=== PATIENT | female | born 1975 | race Two or more races ===

== ENCOUNTER 2020-06-18 19:41 | Inpatient (IN) | payer MEDICARE, MEDICAID ==
[~2020-06-18] VITALS: Ht 175.3 cm; Wt 71.8 kg
[2020-06-18 19:41] VITALS: BP 112/75
[2020-06-18 20:17] LABS: BASOPHILS % (AUTO) 0.8 % (0.0-2.0); EOSINOPHILS % (AUTO) 0.4 % (0.0-3.0); HEMATOCRIT 30.8 % (37.0-47.0); HEMOGLOBIN 9.9 G/DL (12.0-16.0); LYMPHOCYTES % (AUTO) 13.4 % (20.0-45.0); MEAN CORPUSCULAR VOLUME 84 FL (80-99); MONOCYTES % (AUTO) 4.5 % (1.0-10.0); NEUTROPHILS % (AUTO) 80.9 % (45.0-75.0); PLATELET COUNT 280 K/UL (150-450); RED BLOOD COUNT 3.65 M/UL (4.20-5.40); RED CELL DISTRIBUTION WIDTH 14.8 % (11.6-14.8); WHITE BLOOD COUNT 15.6 K/UL (4.8-10.8)
--- NOTE | 2020-06-18 20:24 | Diagnostic Imaging Report ---
EXAM: XR Chest, 1 View CLINICAL HISTORY: OSTEOMY TECHNIQUE: Frontal view of the chest. COMPARISON: No relevant prior studies available. FINDINGS: Lungs: Low lung volumes with bronchovascular crowding. No consolidation, pleural effusion, or pneumothorax. Pleural space: See above. Heart: Unremarkable. No cardiomegaly. Mediastinum: Unremarkable. Bones/joints: No acute abnormality IMPRESSION: 1. Low lung volumes with bronchovascular crowding. 2. Otherwise no acute cardiopulmonary disease. 3. If there is further concern, recommend additional imaging such as CT.
[2020-06-18 20:25] LABS: ANION GAP 13 mmol/L (5-15); BLOOD UREA NITROGEN 26 mg/dL (7-18); CALCIUM 9.4 MG/DL (8.5-10.1); CARBON DIOXIDE 24 MMOL/L (21-32); CHLORIDE 98 MMOL/L (98-107); POTASSIUM 4.7 MMOL/L (3.5-5.1); SODIUM 135 MMOL/L (136-145)
--- NOTE | 2020-06-18 20:27 | Diagnostic Imaging Report ---
EXAM: XR Right Foot Complete, 3 or More Views CLINICAL HISTORY: Osteotomy TECHNIQUE: Frontal, lateral and oblique views of the right foot. COMPARISON: No relevant prior studies available. FINDINGS: Bones/joints: Midfoot amputation through the metatarsal bases. Achilles calcaneal enthesophyte. No acute fracture. No dislocation. Soft tissues: Extensive soft tissue edema and thickening over the distal stump, correlate with presentation to evaluate for cellulitis and ulceration. No radiopaque foreign body. Other findings: No clearly osteolytic finding identified. IMPRESSION: 1. Please note that radiographs are substantially less sensitive and specific for osteomyelitis then MRI. 2. Midfoot amputation through the metatarsal bases. 3. Extensive soft tissue edema and thickening over the distal stump, correlate with presentation to evaluate for cellulitis and ulceration. 4. No clearly osteolytic finding identified.
[2020-06-18 20:29] LABS: ALANINE AMINOTRANSFERASE 19 U/L (12-78); ALBUMIN 3.5 G/DL (3.4-5.0); ALBUMIN/GLOBULIN RATIO 0.7 (1.0-2.7); ALKALINE PHOSPHATASE 121 U/L (46-116); ASPARTATE AMINO TRANSFERASE 13 U/L (15-37); BILIRUBIN,TOTAL 0.4 MG/DL (0.2-1.0); CREATINE KINASE 130 U/L (26-308)
[2020-06-18 21:45] LABS: APPEARANCE,URINE CLOUDY; COLOR,URINE YELLOW
[2020-06-18 21:46] LABS: BILIRUBIN, URINE NEGATIVE (NEGATIVE); GLUCOSE, URINE (UA) NEGATIVE (NEGATIVE); KETONES,URINE NEGATIVE (NEGATIVE); LEUKOCYTE ESTERASE ,URINE 3+ (NEGATIVE); NITRITE,URINE NEGATIVE (NEGATIVE); PROTEIN,URINE 3+ (NEGATIVE); UROBILINOGEN,URINE NORMAL MG/DL (0.0-1.0)
--- NOTE | 2020-06-18 22:19 | Emergency Room Report ---
History of Present Illness General Chief Complaint: Wound Recheck/Suture Removal Source: Patient, EMS Present Illness HPI Patient from [facility]. Foot infection partially treated post amputation. She states she is supposed be taking antibiotics at this time. She was recently hospitalized with Jayda. It is unclear whether she left [facility] or from a rehab facility to go back to the [facility]. She denies any drainage in the foot but has not been taking care of the wound. Initially she claims the pain is 10/10 however later states that when the foot is elevated it does not hurt. The pain is pressure and throbbing. She denies radiation up into the leg. She is unclear as to what led to the partial foot amputation aside from having a previous infection. She denies diabetes or poor circulation. She denies fevers or chills. H/O schizophrenia. No SI or HI. The patient is not taking medication at this time. No sore throat, chest pain, palpitations, nausea, vomiting, diarrhea, dysuria, abdominal pain, shortness of breath, visual changes, dizziness, headache. Allergies: Coded Allergies: No Known Allergies (Unverified , 06/18/20) COVID-19 Screening Contact w/high risk pt: No Experienced COVID-19 symptoms?: No COVID-19 Testing performed DRAGGER: No Patient History Past Medical History: see triage record Past Surgical History: other - forefoot amputation Social History: Denies: smoking Social History Narrative eloped from SNF? Reviewed Nursing Documentation: PMH: Agreed; PSxH: Agreed Review of Systems All Other Systems: negative except mentioned in HPI Physical Exam Vital Signs Date Time Temp Pulse Resp B/P (MAP) Pulse Ox O2 Delivery O2 Flow Rate FiO2 06/18/20 19:26 98.4 90 18 110/70 (83) 98 Room Air Sp02 EP Interpretation: reviewed, normal General Appearance: no apparent distress, alert, non-toxic, other - Disheveled Head: normocephalic Eyes: bilateral eye PERRL, bilateral eye EOMI, bilateral eye Scleral Injection ENT: moist mucus membranes Neck: supple Respiratory: lungs clear, normal breath sounds Cardiovascular #1: regular rate, rhythm Cardiovascular #2: 2+ radial (R) Gastrointestinal: normal inspection, non-distended Musculoskeletal: back normal, normal range of motion, swelling - Right distal foot with open lesion post amputation Neurologic: alert, oriented x3, grossly normal Psychiatric: no suicidal/homicidal ideation, other - Flat affect and some disorganized thought Skin: warm/dry, other - Open lesion with erythema, possible vegetable debris right foot Medical Decision Making Diagnostic Impression: Primary Impression: Cellulitis Qualified Codes: L03.115 - Cellulitis of right lower limb Additional Impressions: UTI (urinary tract infection) Qualified Codes: N39.0 - Urinary tract infection, site not specified Schizophrenia Qualified Codes: F20.9 - Schizophrenia, unspecified Post midfoot amputation ER Course Patient presents with right foot lesion with a history of schizophrenia. Differential includes cellulitis, abscess, osteomyelitis amongst others. Apparently she is supposed be taking antibiotics in a rehab facility but left. Evaluation for systemic effects of this infection with EKG and labs and x-ray. Patient declined pain medication. EKG no injury. Elevate WBC and ESR. Xray no evidence of gas or osteo. Urinalysis with pyuria. Antibiotics begun. Apparently there is an SNF ready for patient. However due to the appearance of her foot and also UTI and schizophrenia, patient needs admission for IV antibiotics. Complicated patient at risk for severe complications. Ability to care for these serious infections compromised by schizophrenia. Laboratory Tests Test 06/18/20 19:56 White Blood Count 15.6 K/UL (4.8-10.8) H Red Blood Count 3.65 M/UL (4.20-5.40) L Hemoglobin 9.9 G/DL (12.0-16.0) L Hematocrit 30.8 % (37.0-47.0) L Mean Corpuscular Volume 84 FL (80-99) Mean Corpuscular Hemoglobin 27.0 PG (27.0-31.0) Mean Corpuscular Hemoglobin Concent 32.0 G/DL (32.0-36.0) Red Cell Distribution Width 14.8 % (11.6-14.8) Platelet Count 280 K/UL (150-450) Mean Platelet Volume 8.4 FL (6.5-10.1) Neutrophils (%) (Auto) 80.9 % (45.0-75.0) H Lymphocytes (%) (Auto) 13.4 % (20.0-45.0) L Monocytes (%) (Auto) 4.5 % (1.0-10.0) Eosinophils (%) (Auto) 0.4 % (0.0-3.0) Basophils (%) (Auto) 0.8 % (0.0-2.0) Erythrocyte Sedimentation Rate 119 MM/HR (0-20) H Prothrombin Time 10.8 SEC (9.30-11.50) Prothrombin Time INR 1.0 (0.9-1.1) Activated Partial Thromboplast Time 28 SEC (23-33) Urine Color Yellow Urine Appearance Cloudy Urine pH 5.0 (4.5-8.0) Urine Specific [place] 1.020 (1.005-1.035) Urine Protein 3+ (NEGATIVE) H Urine Glucose (UA) Negative (NEGATIVE) Urine Ketones Negative (NEGATIVE) Urine Blood 2+ (NEGATIVE) H Urine Nitrite Negative (NEGATIVE) Urine Bilirubin Negative (NEGATIVE) Urine Urobilinogen Normal MG/DL (0.0-1.0) Urine Leukocyte Esterase 3+ (NEGATIVE) H Urine RBC 2-4 /HPF (0 - 2) H Urine WBC 20-30 /HPF (0 - 2) H Urine Squamous Epithelial Cells Many /LPF (NONE/OCC) H Urine Bacteria Many /HPF (NONE) H Sodium Level 135 MMOL/L (136-145) L Potassium Level 4.7 MMOL/L (3.5-5.1) Chloride Level 98 MMOL/L (98-107) Carbon Dioxide Level 24 MMOL/L (21-32) Anion Gap 13 mmol/L (5-15) Blood Urea Nitrogen 26 mg/dL (7-18) H Creatinine 2.0 MG/DL (0.55-1.30) H Estimated Glomerular Filtration Rate 27.1 mL/min (>60) Glucose Level 182 MG/DL (74-106) H Lactic Acid Level 1.60 mmol/L (0.4-2.0) Calcium Level 9.4 MG/DL (8.5-10.1) Magnesium Level 1.9 MG/DL (1.8-2.4) Total Bilirubin 0.4 MG/DL (0.2-1.0) Aspartate Amino Transferase (AST) 13 U/L (15-37) L Alanine Aminotransferase (ALT) 19 U/L (12-78) Alkaline Phosphatase 121 U/L (46-116) H Total Creatine Kinase 130 U/L (26-308) Troponin I 0.000 ng/mL (0.000-0.056) C-Reactive Protein, Quantitative 4.5 mg/dL (0.00-0.90) H Total Protein 8.8 G/DL (6.4-8.2) H Albumin 3.5 G/DL (3.4-5.0) Globulin 5.3 g/dL Albumin/Globulin Ratio 0.7 (1.0-2.7) L Lipase 83 U/L (73-393) Urine Opiates Screen Negative (NEGATIVE) Urine Barbiturates Screen Negative (NEGATIVE) Phencyclidine (PCP) Screen Negative (NEGATIVE) Urine Amphetamines Screen Negative (NEGATIVE) Urine Benzodiazepines Screen Negative (NEGATIVE) Urine Cocaine Screen Negative (NEGATIVE) Urine Marijuana (THC) Screen Negative (NEGATIVE) Serum Alcohol < 3 mg/dL EKG Diagnostic Results Rate: normal Rhythm: NSR ST Segments: no acute changes Rhythm Strip Diag. Results EP Interpretation: yes Rhythm: NSR, no PVC's, no ectopy Chest X-Ray Diagnostic Results Chest X-Ray Diagnostic Results : Chest X-Ray Ordered: Yes # of Views/Limited/Complete: 1 View Indication: Other EP Interpretation: Yes Interpretation: no consolidation, no effusion, no pneumothorax Impression: No acute disease Electronically Signed by: Electronically signed by Harjeet Barajas MD Other X-Ray Diagnostic Results Other X-Ray Diagnostic Results : X-Ray ordered: R foot # of Views/Limited Vs Complete: 3 View Indication: Other EP Interpretation: Yes Interpretation: no dislocation, no fractures, other Impression: Other Electronically Signed by: Electronically signed by Harjeet Barajas MD Last Vital Signs Date Time Temp Pulse Resp B/P (MAP) Pulse Ox O2 Delivery O2 Flow Rate FiO2 06/19/20 00:58 Room Air 06/19/20 00:21 97.9 77 17 127/77 (94) 98 Status: improved Disposition: ADMITTED INPATIENT Condition: Serious Referrals: NOT CHOSEN IPA/,REFERRING (PCP) Harjeet Barajas MD Jun 18, 2020 22:19
[2020-06-18] MEDS ORDERED: Piperacillin/Tazobactam 3.375 GM in NS 110 ML IVPB ONE (22:30)
[2020-06-18] MEDS ORDERED: Vancomycin 1 GM in NS 275 ML IVPB ONE (22:30)
[2020-06-18] MEDS ORDERED: DiphenhydrAMINE 50mg/ml Inj IVP ONE (22:45)
[2020-06-18] MEDS ORDERED: Metoclopramide 10mg/2ml Inj IVP ONE (22:45)
[2020-06-19 00:21] VITALS: BP 127/77
[2020-06-19 04:00] VITALS: BP 117/64
[2020-06-19 08:00] VITALS: BP 119/73
--- NOTE | 2020-06-19 08:45 | History & Physical ---
History of Present Illness General Reason for Hospitalization: Wound Recheck/Suture Removal Present Illness HPI 45 year old homeless female with recent Foot infection partially treated post amputation. She states she is supposed be taking antibiotics at this time. She was recently hospitalized with Jayda. It is unclear whether she left [facility] or from a rehab facility to go back to the streets. She denies any drainage in the foot but has not been taking care of the wound. Initially she claims the pain is 10/10 however later states that when the foot is elevated it does not hurt. The pain is pressure and throbbing. She denies radiation up into the leg. She is unclear as to what led to the partial foot amputation aside from having a previous infection. She denies diabetes or poor circulation. She denies fevers or chills.H/O schizophrenia. No SI or HI. The patient is not taking medication at this time.No sore throat, chest pain, palpitations, nausea, vomiting, diarrhea, dysuria, abdominal pain, shortness of breath, visual changes, dizziness, headache. Allergies: Coded Allergies: No Known Allergies (Unverified , 06/18/20) COVID-19 Screening Contact w/high risk pt: No Experienced COVID-19 symptoms?: No Medication History Scheduled Haloperidol (Haloperidol), 5 MG ORAL DAILY, (Reported) Patient History Healthcare decision maker Resuscitation status Advanced Directive on File Review of Systems Review of Symptoms General ROS: no weight loss or fever Psychological ROS: no depression or mood changes, no memory loss Ophthalmic ROS: no visual changes or eye irritation ENT ROS: no nasal congestion, hearing loss, dizziness Allergy and Immunology ROS: no allergic symptoms or urticaria Hematological and Lymphatic ROS: no swollen glands, unusual bleeding or bruising Endocrine ROS: no polyuria, polydipsia, weight changes, temperature intolerance Respiratory ROS: no cough, shortness of breath, or wheezing Cardiovascular ROS: no chest pain or dyspnea on exertion Gastrointestinal ROS: denies abdominal pain, bright red blood in stool. Musculoskeletal ROS: no myalgias or arthralgias Neurological ROS: no TIA or stroke symptoms Dermatological ROS: no new or changing skin lesions, rashes or pruritis Physical Exam Physical Exam General appearance: alert, cooperative, no distress, appears stated age Head: Normocephalic, without obvious abnormality, atraumatic Eyes: conjunctivae/corneas clear. PERRL, EOM's intact. Fundi benign Throat: Lips, mucosa, and tongue normal. Teeth and gums normal Neck: supple, symmetrical, trachea midline, no adenopathy, thyroid: not enlarged, symmetric, no tenderness/mass/nodules, no carotid bruit and no JVD Lungs: clear to auscultation bilaterally Heart: regular rate and rhythm, S1, S2 normal, no murmur, click, rub or gallop Abdomen: soft, non-tender. Bowel sounds normal. No masses, no organomegaly Extremities: extremities normal, atraumatic, no cyanosis or edema + foot infection Pulses: 2+ and symmetric Skin: Skin color, texture, turgor normal. No rashes or lesions Neurologic: Grossly normal Last 24 Hour Vital Signs Date Time Temp Pulse Resp B/P (MAP) Pulse Ox O2 Delivery O2 Flow Rate FiO2 06/19/20 04:00 98.3 82 17 117/64 (81) 98 06/19/20 00:58 Room Air 06/19/20 00:21 97.9 77 17 127/77 (94) 98 06/18/20 23:55 98.0 100 20 129/59 98 Room Air 06/18/20 19:41 98.0 98 18 112/75 98 Room Air 06/18/20 19:26 98.4 90 18 110/70 (83) 98 Room Air Intake and Output 06/18/20 06/19/20 19:00 07:00 Intake Total 1260 ml Balance 1260 ml Intake Oral 150 ml IV Total 1110 ml # Voids 1 Laboratory Tests Test 06/18/20 19:56 White Blood Count 15.6 K/UL (4.8-10.8) H Red Blood Count 3.65 M/UL (4.20-5.40) L Hemoglobin 9.9 G/DL (12.0-16.0) L Hematocrit 30.8 % (37.0-47.0) L Mean Corpuscular Volume 84 FL (80-99) Mean Corpuscular Hemoglobin 27.0 PG (27.0-31.0) Mean Corpuscular Hemoglobin Concent 32.0 G/DL (32.0-36.0) Red Cell Distribution Width 14.8 % (11.6-14.8) Platelet Count 280 K/UL (150-450) Mean Platelet Volume 8.4 FL (6.5-10.1) Neutrophils (%) (Auto) 80.9 % (45.0-75.0) H Lymphocytes (%) (Auto) 13.4 % (20.0-45.0) L Monocytes (%) (Auto) 4.5 % (1.0-10.0) Eosinophils (%) (Auto) 0.4 % (0.0-3.0) Basophils (%) (Auto) 0.8 % (0.0-2.0) Erythrocyte Sedimentation Rate 119 MM/HR (0-20) H Prothrombin Time 10.8 SEC (9.30-11.50) Prothromb Time International Ratio 1.0 (0.9-1.1) Activated Partial Thromboplast Time 28 SEC (23-33) Urine Color Yellow Urine Appearance Cloudy Urine pH 5.0 (4.5-8.0) Urine Specific [place] 1.020 (1.005-1.035) Urine Protein 3+ (NEGATIVE) H Urine Glucose (UA) Negative (NEGATIVE) Urine Ketones Negative (NEGATIVE) Urine Blood 2+ (NEGATIVE) H Urine Nitrite Negative (NEGATIVE) Urine Bilirubin Negative (NEGATIVE) Urine Urobilinogen Normal MG/DL (0.0-1.0) Urine Leukocyte Esterase 3+ (NEGATIVE) H Urine RBC 2-4 /HPF (0 - 2) H Urine WBC 20-30 /HPF (0 - 2) H Urine Squamous Epithelial Cells Many /LPF (NONE/OCC) H Urine Bacteria Many /HPF (NONE) H Sodium Level 135 MMOL/L (136-145) L Potassium Level 4.7 MMOL/L (3.5-5.1) Chloride Level 98 MMOL/L (98-107) Carbon Dioxide Level 24 MMOL/L (21-32) Anion Gap 13 mmol/L (5-15) Blood Urea Nitrogen 26 mg/dL (7-18) H Creatinine 2.0 MG/DL (0.55-1.30) H Estimat Glomerular Filtration Rate 27.1 mL/min (>60) Glucose Level 182 MG/DL (74-106) H Lactic Acid Level 1.60 mmol/L (0.4-2.0) Calcium Level 9.4 MG/DL (8.5-10.1) Magnesium Level 1.9 MG/DL (1.8-2.4) Total Bilirubin 0.4 MG/DL (0.2-1.0) Aspartate Amino Transf (AST/SGOT) 13 U/L (15-37) L Alanine Aminotransferase (ALT/SGPT) 19 U/L (12-78) Alkaline Phosphatase 121 U/L (46-116) H Total Creatine Kinase 130 U/L (26-308) Troponin I 0.000 ng/mL (0.000-0.056) C-Reactive Protein, Quantitative 4.5 mg/dL (0.00-0.90) H Total Protein 8.8 G/DL (6.4-8.2) H Albumin 3.5 G/DL (3.4-5.0) Globulin 5.3 g/dL Albumin/Globulin Ratio 0.7 (1.0-2.7) L Lipase 83 U/L (73-393) Urine Opiates Screen Negative (NEGATIVE) Urine Barbiturates Screen Negative (NEGATIVE) Phencyclidine (PCP) Screen Negative (NEGATIVE) Urine Amphetamines Screen Negative (NEGATIVE) Urine Benzodiazepines Screen Negative (NEGATIVE) Urine Cocaine Screen Negative (NEGATIVE) Urine Marijuana (THC) Screen Negative (NEGATIVE) Serum Alcohol < 3 mg/dL Height (Feet): 5 Height (Inches): 9.00 Weight (Pounds): 160 Medications Current Medications Medications (Trade) Dose Ordered Sig/Disha Route PRN Reason Start Time Stop Time Status Last Admin Dose Admin Acetaminophen (Tylenol) 650 mg Q6H PRN ORAL For Pain 06/19/20 00:15 07/19/20 00:14 Heparin Sodium (Porcine) (Heparin 5000 units/ml) 5,000 units EVERY 12 HOURS SUBQ 06/19/20 09:00 08/03/20 08:59 Vancomycin HCl ([facility] pharmacy to dose) 1 ea DAILY PRN MISC Per rx protocol 06/19/20 00:15 07/19/20 00:14 Assessment/Plan Diagnosis [place]: #RLE cellulitis - r/o osteo #UTI #h/o schitzophrenia #homelessness - admit inpatient- - vanco and zosyn - surgery eval - ID eval - consider MRI - follow cx - psyc consult for history of schitophrenia IMPRESSION: 1. Please note that radiographs are substantially less sensitive and specific for osteomyelitis then MRI. 2. Midfoot amputation through the metatarsal bases. 3. Extensive soft tissue edema and thickening over the distal stump, correlate with presentation to evaluate for cellulitis and ulceration. 4. No clearly osteolytic finding identified. Time spent 70 mn greater than 50% on care coordination and counseling [facility] Hospital declaration INPATIENT level of care is warranted for this patient because patient is a 89 year old with who presents with suspicion of . I have a high level of concern because . Patient is at high risk for . Plan of care/treatment include . Patient care is expected to be greater than 2 midnights. OBSERVATION level of care is warranted for this patient. Patient is a 89 year old with who presents with . Patient will be admitted for 1 midnight, but if additional night(s) is/are necessary, patient will be converted to inpatient status for the entire hospitalization Disposition: Once the patient is stable to leave the hospital, I anticipate the patient will likely be discharged to the following environment: Estimated discharge date: I spent 70 minutes on this patient's case, and minutes was dedicated to counseling and/or care coordination. MIPS ([employer]-based Incentive Payment System) Applicable CPT: 23795, 31210 CHECK ALL THAT ARE MET: Measure #5 (CHF): All ages. Prescribe FRANCISCA/ARB upon discharge for patients with left ventricular systolic dysfunction. If not, the reason is clearly documented in the medical chart. Measure #8 (CHF): All ages. Prescribe a beta noé upon discharge for patients with left ventricular systolic dysfunction. If not, the reason is clearly documented in the medical chart. Measure #47 Advance care plan or surrogate decision maker documented in the medical record. Measure #130 The provider has documented, updated, or reviewed the patients current medication list and has documented it in the patients note. Measure #374 (All): Send report to referring provider. Measure #407(Sepsis due to MSSA bacteremia): Age 18+ Patient treated with a beta-lactam antibiotic (Nafcillin, Oxacillin or Cefazolin) as definitive therapy. MEDICAL COMPLEXITY High complexity medical decision making (need 2/3 categories) Problem - need 4 points Acute/new problem with new plan for workup (4 points, 1 max) Acute/new problem without additional workup (3 points, 1 max) Unstable chronic problem actively being managed (2 point each, 2 max) Stable chronic problem actively being managed (1 point each, 2 max) Self-limited/transient process (constipation, muscle ache, etc) (1 point each , 2 max) Data - need 4 points Reviewed labs/imaging studies (1 points, 2 max) Independent review of imaging (EKG, xrays, etc) (2 points, 2 max) Discussed case with consult/other MD/RN (2 points, 2 max) High Risk - qualify if have one of the following: Severe exacerbation of acute problem, acute mental status change, IV narcotics , monitoring drug levels (vancomycin, INR, tacrolimus etc) Prasanth Kaplan M.D. Jun 19, 2020 08:45
[2020-06-19] MEDS: Heparin 5000 units/ml inj SUBQ SCH ×2 (09:17→20:32)
[2020-06-19 12:00] VITALS: BP 125/69
[2020-06-19] MEDS: Piperacillin/Tazobactam 3.375 GM in NS 110 ML IVPB SCH ×2 (14:48→21:55)
[2020-06-19 16:00] VITALS: BP 116/54
[2020-06-19] MEDS ORDERED: Vancomycin 750mg/NS 275ml IVPB ONE ×2 (18:00)
[2020-06-19] MEDS ORDERED: HALOPERIDOL5 MG ORAL (18:08)
[2020-06-19 20:00] VITALS: BP 120/57
[2020-06-20] VITALS: BP 117/56
--- NOTE | 2020-06-20 01:15 | Consultation ---
DATE OF CONSULTATION: 06/19/2020 HISTORY: This is a 45-year-old female with a history of multiple medical issues including schizophrenia who has been admitted to the hospital due to and suture removal. The patient infection and is status post amputation. The patient is a poor historian. provide any meaningful history what medications she is on. [facility] PAST PSYCHIATRIC HISTORY: Schizoaffective disorder, depression, and schizophrenia. PAST MEDICAL HISTORY: Significant for cellulitis and UTI. ALLERGIES: No known drug allergies. SOCIAL HISTORY: Denies any history of illicit drug use or alcohol. Urine toxicology is negative for any drugs or alcohol. MENTAL STATUS EXAMINATION: The patient is alert, oriented x2, forgetful, cooperative. Mood is neutral to anxious. Affect is flat. Thought process, there is paucity of thought content. Thought content, no suicidal or homicidal ideation. Has auditory hallucinations. Cognition is impaired. Insight and judgment are limited. ASSESSMENT: Mckenna I Schizophrenia. Mckenna II Deferred. Mckenna III As above. Mckenna IV Homelessness and living in a facility. Mckenna V 50. PLAN: 1. We will start the patient on risperidone 2 mg at bedtime. 2. Provide the patient with reality orientation and supportive therapy. Bravo Coto M.D. DR: NIRU JOB#: [id number] CC: GINETTE
[2020-06-20 04:00] VITALS: BP 116/62
[2020-06-20] MEDS: Piperacillin/Tazobactam 3.375 GM in NS 110 ML IVPB SCH ×3 (05:48→22:02)
[2020-06-20 07:19] LABS: BASOPHILS % (AUTO) 0.9 % (0.0-2.0); EOSINOPHILS % (AUTO) 1.6 % (0.0-3.0); HEMATOCRIT 28.3 % (37.0-47.0); HEMOGLOBIN 8.9 G/DL (12.0-16.0); LYMPHOCYTES % (AUTO) 18.2 % (20.0-45.0); MEAN CORPUSCULAR VOLUME 83 FL (80-99); MONOCYTES % (AUTO) 4.5 % (1.0-10.0); NEUTROPHILS % (AUTO) 74.9 % (45.0-75.0); PLATELET COUNT 273 K/UL (150-450); RED BLOOD COUNT 3.41 M/UL (4.20-5.40); RED CELL DISTRIBUTION WIDTH 13.6 % (11.6-14.8); WHITE BLOOD COUNT 9.3 K/UL (4.8-10.8)
[2020-06-20 07:26] LABS: ANION GAP 7 mmol/L (5-15); BLOOD UREA NITROGEN 15 mg/dL (7-18); CALCIUM 8.9 MG/DL (8.5-10.1); CARBON DIOXIDE 26 MMOL/L (21-32); CHLORIDE 104 MMOL/L (98-107); CREATININE 1.1 MG/DL (0.55-1.30); POTASSIUM 4.2 MMOL/L (3.5-5.1); SODIUM 137 MMOL/L (136-145)
[2020-06-20 08:00] VITALS: BP 134/58
[2020-06-20] MEDS: Heparin 5000 units/ml inj SUBQ SCH ×2 (09:41→21:00)
[2020-06-20 12:00] VITALS: BP 144/78
--- NOTE | 2020-06-20 13:28 | General Progress Note ---
Assessment/Plan Assessment/Plan: #RLE cellulitis - r/o osteo #UTI #h/o schitzophrenia #homelessness #headaches - vanco and zosyn - surgery eval - ID eval - check MRI - neuro eval for headaches - follow cx - psyc consult for history of schitophrenia Subjective ROS Limited/Unobtainable: No Allergies: Coded Allergies: No Known Allergies (Unverified , 06/18/20) All Systems: reviewed and negative except above Objective Last 24 Hour Vital Signs Date Time Temp Pulse Resp B/P (MAP) Pulse Ox O2 Delivery O2 Flow Rate FiO2 06/20/20 08:00 98.4 84 20 134/58 (83) 97 06/20/20 04:00 98.3 86 20 116/62 (80) 100 06/20/20 00:00 98.3 86 20 117/56 (76) 100 06/19/20 20:22 Room Air 06/19/20 20:00 97.9 85 20 120/57 (78) 100 06/19/20 19:36 98.2 06/19/20 16:00 98.2 88 20 116/54 (74) 100 Intake and Output 06/19/20 06/20/20 19:00 07:00 Intake Total 960 ml 300 ml Balance 960 ml 300 ml Intake Oral 960 ml 300 ml # Voids 1 Laboratory Tests 06/20/20 06:27: White Blood Count 9.3, Red Blood Count 3.41L, Hemoglobin 8.9L, Hematocrit 28.3L , Mean Corpuscular Volume 83, Mean Corpuscular Hemoglobin 26.2L, Mean Corpuscular Hemoglobin Concent 31.5L, Red Cell Distribution Width 13.6, Platelet Count 273, Mean Platelet Volume 7.4, Neutrophils (%) (Auto) 74.9, Lymphocytes (%) (Auto) 18.2L, Monocytes (%) (Auto) 4.5, Eosinophils (%) (Auto) 1.6, Basophils (%) (Auto) 0.9, Sodium Level 137, Potassium Level 4.2, Chloride Level 104, Carbon Dioxide Level 26, Anion Gap 7, Blood Urea Nitrogen 15, Creatinine 1.1, Estimat Glomerular Filtration Rate 53.9, Glucose Level 173H, Calcium Level 8.9 Height (Feet): 5 Height (Inches): 9.00 Weight (Pounds): 158 Prasanth Kaplan M.D. Jun 20, 2020 13:28
--- NOTE | 2020-06-20 13:51 | Infectious Diseases Prog Note ---
Assessment/Plan Assessment/Plan Full consult to follow: A) 1) right foot wound infection and cellulitis, wound culture with staph aureus 2) gram neg uti 3) ? osteomyelitis 4) pmh noted 5) allergies - nkda P) 1) vancomycin and zosyn 2) check final cultures 3) consider MRI right foot 4) surgery evaluation 5) thank you Subjective Allergies: Coded Allergies: No Known Allergies (Unverified , 06/18/20) Objective Last 24 Hour Vital Signs Date Time Temp Pulse Resp B/P (MAP) Pulse Ox O2 Delivery O2 Flow Rate FiO2 06/20/20 08:00 98.4 84 20 134/58 (83) 97 06/20/20 04:00 98.3 86 20 116/62 (80) 100 06/20/20 00:00 98.3 86 20 117/56 (76) 100 06/19/20 20:22 Room Air 06/19/20 20:00 97.9 85 20 120/57 (78) 100 06/19/20 19:36 98.2 06/19/20 16:00 98.2 88 20 116/54 (74) 100 Height (Feet): 5 Height (Inches): 9.00 Weight (Pounds): 158 Microbiology Date/Time Source Procedure Growth Status 06/18/20 19:56 Blood Peripheral Blood Culture - Preliminary NO GROWTH AFTER 24 HOURS Resulted 06/18/20 19:40 Blood Peripheral Blood Culture - Preliminary NO GROWTH AFTER 24 HOURS Resulted 06/18/20 19:56 Urine,Clean Catch Urine Culture - Preliminary Gram Negative Bacillus 1 Resulted 06/18/20 20:24 Foot Right Gram Stain - Final Resulted 06/18/20 20:24 Wound Culture - Preliminary Staphylococcus Aureus Resulted Laboratory Tests Test 06/20/20 06:27 White Blood Count 9.3 K/UL (4.8-10.8) Red Blood Count 3.41 M/UL (4.20-5.40) L Hemoglobin 8.9 G/DL (12.0-16.0) L Hematocrit 28.3 % (37.0-47.0) L Mean Corpuscular Volume 83 FL (80-99) Mean Corpuscular Hemoglobin 26.2 PG (27.0-31.0) L Mean Corpuscular Hemoglobin Concent 31.5 G/DL (32.0-36.0) L Red Cell Distribution Width 13.6 % (11.6-14.8) Platelet Count 273 K/UL (150-450) Mean Platelet Volume 7.4 FL (6.5-10.1) Neutrophils (%) (Auto) 74.9 % (45.0-75.0) Lymphocytes (%) (Auto) 18.2 % (20.0-45.0) L Monocytes (%) (Auto) 4.5 % (1.0-10.0) Eosinophils (%) (Auto) 1.6 % (0.0-3.0) Basophils (%) (Auto) 0.9 % (0.0-2.0) Sodium Level 137 MMOL/L (136-145) Potassium Level 4.2 MMOL/L (3.5-5.1) Chloride Level 104 MMOL/L (98-107) Carbon Dioxide Level 26 MMOL/L (21-32) Anion Gap 7 mmol/L (5-15) Blood Urea Nitrogen 15 mg/dL (7-18) Creatinine 1.1 MG/DL (0.55-1.30) Estimat Glomerular Filtration Rate 53.9 mL/min (>60) Glucose Level 173 MG/DL (74-106) H Calcium Level 8.9 MG/DL (8.5-10.1) Current Medications Medications (Trade) Dose Ordered Sig/Disha Route PRN Reason Start Time Stop Time Status Last Admin Dose Admin Acetaminophen (Tylenol) 650 mg Q6H PRN ORAL For Pain 06/19/20 00:15 07/19/20 00:14 06/19/20 19:06 Heparin Sodium (Porcine) (Heparin 5000 units/ml) 5,000 units EVERY 12 HOURS SUBQ 06/19/20 09:00 08/03/20 08:59 06/20/20 09:41 Piperacillin Sod/ Tazobactam Sod 3.375 gm/Sodium Chloride 110 ml @ 27.5 mls/hr EVERY 8 HOURS IVPB 06/19/20 14:00 06/24/20 13:59 06/20/20 05:48 Risperidone (RisperDAL) 2 mg BEDTIME ORAL 06/20/20 21:00 08/04/20 20:59 Vancomycin HCl (Vanco pharmacy to dose) 1 ea DAILY PRN MISC Per rx protocol 06/19/20 00:15 07/19/20 00:14 Nataly Wagner MD Jun 20, 2020 13:51
--- NOTE | 2020-06-20 14:41 | Consultation ---
History of Present Illness General Date patient seen: Jun 20, 2020 Reason for Hospitalization: Wound Recheck/Suture Removal Present Illness HPI This is a 45-year-old female homeless who initially presented to outside facility for infected right foot and per history had a transmetatarsal amputation and was sent to rehab facility for further care and management recently worsening and came to [place] for evaluation. Complaining of pain. No nausea or vomiting. Abnormal labs. Surgery called to eval and assist with care. Patient seen, patient evaluated, chart reviewed. Currently states she is well and is a very poor historian. Does not recall any care being provided to her foot and states that dressings been on there since they have been on there. She does not assist with her dressing care but is able to ambulate and take care of her self otherwise but relies on others to do so. Allergies: Coded Allergies: No Known Allergies (Unverified , 06/18/20) COVID-19 Screening Contact w/high risk pt: No Experienced COVID-19 symptoms?: No Medication History Scheduled Haloperidol (Haloperidol), 5 MG ORAL DAILY, (Reported) Patient History History Provided By: Patient, Medical Record, PMD Healthcare decision maker Resuscitation status Advanced Directive on File Past Medical/Surgical History Past Medical/Surgical History: (1) Cellulitis (2) Schizophrenia (3) UTI (urinary tract infection) Review of Systems Review of Symptoms General ROS: no weight loss or fever Psychological ROS: no depression or mood changes, no memory loss Ophthalmic ROS: no visual changes or eye irritation ENT ROS: no nasal congestion, hearing loss, dizziness Allergy and Immunology ROS: no allergic symptoms or urticaria Hematological and Lymphatic ROS: no swollen glands, unusual bleeding or bruising Endocrine ROS: no polyuria, polydipsia, weight changes, temperature intolerance Respiratory ROS: no cough, shortness of breath, or wheezing Cardiovascular ROS: no chest pain or dyspnea on exertion Gastrointestinal ROS: denies abdominal pain, bright red blood in stool. Musculoskeletal ROS: no myalgias or arthralgias Neurological ROS: no TIA or stroke symptoms Dermatological ROS: no new or changing skin lesions, rashes or pruritis Physical Exam Physical Exam General appearance: alert, cooperative, no distress, appears stated age Head: Normocephalic, without obvious abnormality, atraumatic Eyes: conjunctivae/corneas clear. PERRL, EOM's intact. Fundi benign Throat: Lips, mucosa, and tongue normal. Teeth and gums normal Neck: supple, symmetrical, trachea midline, no adenopathy, thyroid: not enlarged, symmetric, no tenderness/mass/nodules, no carotid bruit and no JVD Lungs: clear to auscultation bilaterally Heart: regular rate and rhythm, S1, S2 normal, no murmur, click, rub or gallop Abdomen: soft, non-tender. Bowel sounds normal. No masses, no organomegaly Extremities: extremities right foot status post amputation partial warm mild cellulitis no active drainage no purulent drainage surgical site noted Pulses: 2+ and symmetric Skin: Skin color, texture, turgor normal. No rashes or lesions Neurologic: Grossly normal Last 24 Hour Vital Signs Date Time Temp Pulse Resp B/P (MAP) Pulse Ox O2 Delivery O2 Flow Rate FiO2 06/20/20 12:00 98.1 83 18 144/78 (100) 97 06/20/20 09:00 Room Air 06/20/20 08:00 98.4 84 20 134/58 (83) 97 06/20/20 04:00 98.3 86 20 116/62 (80) 100 06/20/20 00:00 98.3 86 20 117/56 (76) 100 06/19/20 20:22 Room Air 06/19/20 20:00 97.9 85 20 120/57 (78) 100 06/19/20 19:36 98.2 06/19/20 16:00 98.2 88 20 116/54 (74) 100 Intake and Output 06/19/20 06/20/20 19:00 07:00 Intake Total 960 ml 300 ml Balance 960 ml 300 ml Intake Oral 960 ml 300 ml # Voids 1 Laboratory Tests Test 06/20/20 06:27 White Blood Count 9.3 K/UL (4.8-10.8) Red Blood Count 3.41 M/UL (4.20-5.40) L Hemoglobin 8.9 G/DL (12.0-16.0) L Hematocrit 28.3 % (37.0-47.0) L Mean Corpuscular Volume 83 FL (80-99) Mean Corpuscular Hemoglobin 26.2 PG (27.0-31.0) L Mean Corpuscular Hemoglobin Concent 31.5 G/DL (32.0-36.0) L Red Cell Distribution Width 13.6 % (11.6-14.8) Platelet Count 273 K/UL (150-450) Mean Platelet Volume 7.4 FL (6.5-10.1) Neutrophils (%) (Auto) 74.9 % (45.0-75.0) Lymphocytes (%) (Auto) 18.2 % (20.0-45.0) L Monocytes (%) (Auto) 4.5 % (1.0-10.0) Eosinophils (%) (Auto) 1.6 % (0.0-3.0) Basophils (%) (Auto) 0.9 % (0.0-2.0) Sodium Level 137 MMOL/L (136-145) Potassium Level 4.2 MMOL/L (3.5-5.1) Chloride Level 104 MMOL/L (98-107) Carbon Dioxide Level 26 MMOL/L (21-32) Anion Gap 7 mmol/L (5-15) Blood Urea Nitrogen 15 mg/dL (7-18) Creatinine 1.1 MG/DL (0.55-1.30) Estimat Glomerular Filtration Rate 53.9 mL/min (>60) Glucose Level 173 MG/DL (74-106) H Calcium Level 8.9 MG/DL (8.5-10.1) Height (Feet): 5 Height (Inches): 9.00 Weight (Pounds): 158 Medications Current Medications Medications (Trade) Dose Ordered Sig/Disha Route PRN Reason Start Time Stop Time Status Last Admin Dose Admin Acetaminophen (Tylenol) 650 mg Q6H PRN ORAL For Pain 06/19/20 00:15 07/19/20 00:14 06/20/20 14:26 Heparin Sodium (Porcine) (Heparin 5000 units/ml) 5,000 units EVERY 12 HOURS SUBQ 06/19/20 09:00 08/03/20 08:59 06/20/20 09:41 Piperacillin Sod/ Tazobactam Sod 3.375 gm/Sodium Chloride 110 ml @ 27.5 mls/hr EVERY 8 HOURS IVPB 06/19/20 14:00 06/24/20 13:59 06/20/20 05:48 Risperidone (RisperDAL) 2 mg BEDTIME ORAL 06/20/20 21:00 08/04/20 20:59 Vancomycin HCl (Vanco pharmacy to dose) 1 ea DAILY PRN MISC Per rx protocol 06/19/20 00:15 07/19/20 00:14 Assessment/Plan Problem List: (1) Cellulitis Assessment & Plan: 45F s/p midfoot amputation now with cellulitis labs as above no n/v/f/c MRI ordered and pending IV abx as per ID will follow with recs as resulted tests Bones/joints: Midfoot amputation through the metatarsal bases. Achilles calcaneal enthesophyte. No acute fracture. No dislocation. Soft tissues: Extensive soft tissue edema and thickening over the distal stump, correlate with presentation to evaluate for cellulitis and ulceration. No radiopaque foreign body. Other findings: No clearly osteolytic finding identified. IMPRESSION: Midfoot amputation through the metatarsal bases. 3. Extensive soft tissue edema and thickening over the distal stump, correlate with presentation to evaluate for cellulitis and ulceration. 4. No clearly osteolytic finding identified. ICD Codes: L03.90 - Cellulitis, unspecified SNOMED: 967158119 Qualifiers: Qualified Codes: L03.115 - Cellulitis of right lower limb (2) Schizophrenia ICD Codes: F20.9 - Schizophrenia, unspecified SNOMED: [id number] Qualifiers: Qualified Codes: F20.9 - Schizophrenia, unspecified (3) UTI (urinary tract infection) ICD Codes: N39.0 - Urinary tract infection, site not specified SNOMED: [id number] Qualifiers: Qualified Codes: N39.0 - Urinary tract infection, site not specified Bar Johnson Jun 20, 2020 14:41
[2020-06-20] MEDS ORDERED: LORazepam 1mg tab ORAL PRN (16:45)
[2020-06-20 17:30] VITALS: BP 133/68
--- NOTE | 2020-06-20 17:40 | Diagnostic Imaging Report ---
Indications: Headache, weakness Technique: Spiral acquisitions obtained through the brain. Angled axial and coronal 5 x 5 mm slices were reconstructed. Total dose length product 1049 mGycm. CTDI vol(s) 53 mGy. Dose reduction achieved using automated exposure control Comparison: None. Findings: No acute intercranial hemorrhage or edema. No mass effect nor midline shift. Normal white differentiation. Normal size ventricles and extra axial CSF spaces. The calvarium is intact. The mastoids are clear. The visualized orbits and sinuses are unremarkable. Impression: Negative The CT scanner at [facility] is accredited by the [employer] and the scans are performed using protocols designed to limit radiation exposure to as low as reasonably achievable to attain images of sufficient resolution adequate for diagnostic evaluation.
[2020-06-20] MEDS: Vancomycin 750mg/NS 275ml IVPB SCH ×2 (19:50)
[2020-06-20 20:00] VITALS: BP 124/63
--- NOTE | 2020-06-20 20:00 | Neurology Progress Note ---
Interim History Interim History Interim History 45 year old homeless female with recent Foot infection partially treated post amputation. She states she is supposed be taking antibiotics at this time. She was recently hospitalized with Josias. It is unclear whether she left [facility] or from a rehab facility to go back to the streets. She denies any drainage in the foot but has not been taking care of the wound. Initially she claims the pain is 10/10 however later states that when the foot is elevated it does not hurt. The pain is pressure and throbbing. She denies radiation up into the leg. Objective Physical Exam Last Vital Signs Date Time Temp Pulse Resp B/P (MAP) Pulse Ox O2 Delivery O2 Flow Rate FiO2 06/20/20 17:30 99.0 82 18 133/68 (89) 96 06/20/20 09:00 Room Air Laboratory Tests Test 06/20/20 06:27 White Blood Count 9.3 K/UL (4.8-10.8) Red Blood Count 3.41 M/UL (4.20-5.40) L Hemoglobin 8.9 G/DL (12.0-16.0) L Hematocrit 28.3 % (37.0-47.0) L Mean Corpuscular Volume 83 FL (80-99) Mean Corpuscular Hemoglobin 26.2 PG (27.0-31.0) L Mean Corpuscular Hemoglobin Concent 31.5 G/DL (32.0-36.0) L Red Cell Distribution Width 13.6 % (11.6-14.8) Platelet Count 273 K/UL (150-450) Mean Platelet Volume 7.4 FL (6.5-10.1) Neutrophils (%) (Auto) 74.9 % (45.0-75.0) Lymphocytes (%) (Auto) 18.2 % (20.0-45.0) L Monocytes (%) (Auto) 4.5 % (1.0-10.0) Eosinophils (%) (Auto) 1.6 % (0.0-3.0) Basophils (%) (Auto) 0.9 % (0.0-2.0) Sodium Level 137 MMOL/L (136-145) Potassium Level 4.2 MMOL/L (3.5-5.1) Chloride Level 104 MMOL/L (98-107) Carbon Dioxide Level 26 MMOL/L (21-32) Anion Gap 7 mmol/L (5-15) Blood Urea Nitrogen 15 mg/dL (7-18) Creatinine 1.1 MG/DL (0.55-1.30) Estimat Glomerular Filtration Rate 53.9 mL/min (>60) Glucose Level 173 MG/DL (74-106) H Calcium Level 8.9 MG/DL (8.5-10.1) Human Chorionic Gonadotropin, Qual Negative (NEGATIVE) Impression/Recommendations Problems: (1) Cellulitis (2) Schizophrenia (3) UTI (urinary tract infection) Diagnostic Impression Encephalopathy UTI h/o schitzophrenia headache neck spasm - baclofen 5m g qhs - ivfs - monitor mental staus - psych mainor parker and Robel Horn MD Jun 20, 2020 20:00
[2020-06-20] MEDS: Pantoprazole Inj IVP SCH (22:04)
--- NOTE | 2020-06-20 23:09 | Consultation ---
History of Present Illness General Chief Complaint: Wound Recheck/Suture Removal Referring physician: mikayla Reason for Consultation: pain Present Illness HPI 45 year old homeless female with recent Foot infection partially treated post amputation. She states she is supposed be taking antibiotics at this time. She was recently hospitalized with Jayda. It is unclear whether she left [facility] or from a rehab facility to go back to the streets. She denies any drainage in the foot but has not been taking care of the wound. Initially she claims the pain is 10/10 however later states that when the foot is elevated it does not hurt. The pain is pressure and throbbing. She denies radiation up into the leg. Allergies: Coded Allergies: No Known Allergies (Unverified , 06/18/20) Medication History Scheduled Haloperidol (Haloperidol), 5 MG ORAL DAILY, (Reported) Patient History Healthcare decision maker Resuscitation status Advanced Directive on File Physical Exam General Appearance: alert Lines, tubes and drains: peripheral HEENT: normocephalic, atraumatic Neck: supple Respiratory/Chest: lungs clear Breasts: no masses Cardiovascular/Chest: normal rate Abdomen: non tender Extremities: normal range of motion, non-tender, normal inspection Skin Exam: normal pigmentation Neurologic: oriented x 3 Lymphatic: anterior cervical Musculoskeletal: no effusion Last 24 Hour Vital Signs Date Time Temp Pulse Resp B/P (MAP) Pulse Ox O2 Delivery O2 Flow Rate FiO2 06/20/20 22:28 Room Air 06/20/20 20:00 98.4 86 20 124/63 (83) 97 06/20/20 17:30 99.0 82 18 133/68 (89) 96 06/20/20 12:00 98.1 83 18 144/78 (100) 97 06/20/20 09:00 Room Air 06/20/20 08:00 98.4 84 20 134/58 (83) 97 06/20/20 04:00 98.3 86 20 116/62 (80) 100 06/20/20 00:00 98.3 86 20 117/56 (76) 100 Intake and Output 06/19/20 06/20/20 19:00 07:00 Intake Total 960 ml 300 ml Balance 960 ml 300 ml Intake Oral 960 ml 300 ml # Voids 1 Laboratory Tests Test 06/20/20 06:27 White Blood Count 9.3 K/UL (4.8-10.8) Red Blood Count 3.41 M/UL (4.20-5.40) L Hemoglobin 8.9 G/DL (12.0-16.0) L Hematocrit 28.3 % (37.0-47.0) L Mean Corpuscular Volume 83 FL (80-99) Mean Corpuscular Hemoglobin 26.2 PG (27.0-31.0) L Mean Corpuscular Hemoglobin Concent 31.5 G/DL (32.0-36.0) L Red Cell Distribution Width 13.6 % (11.6-14.8) Platelet Count 273 K/UL (150-450) Mean Platelet Volume 7.4 FL (6.5-10.1) Neutrophils (%) (Auto) 74.9 % (45.0-75.0) Lymphocytes (%) (Auto) 18.2 % (20.0-45.0) L Monocytes (%) (Auto) 4.5 % (1.0-10.0) Eosinophils (%) (Auto) 1.6 % (0.0-3.0) Basophils (%) (Auto) 0.9 % (0.0-2.0) Sodium Level 137 MMOL/L (136-145) Potassium Level 4.2 MMOL/L (3.5-5.1) Chloride Level 104 MMOL/L (98-107) Carbon Dioxide Level 26 MMOL/L (21-32) Anion Gap 7 mmol/L (5-15) Blood Urea Nitrogen 15 mg/dL (7-18) Creatinine 1.1 MG/DL (0.55-1.30) Estimat Glomerular Filtration Rate 53.9 mL/min (>60) Glucose Level 173 MG/DL (74-106) H Calcium Level 8.9 MG/DL (8.5-10.1) Human Chorionic Gonadotropin, Qual Negative (NEGATIVE) Height (Feet): 5 Height (Inches): 9.00 Weight (Pounds): 158 Medications Current Medications Medications (Trade) Dose Ordered Sig/Disha Route PRN Reason Start Time Stop Time Status Last Admin Dose Admin Acetaminophen (Tylenol) 650 mg Q6H PRN ORAL For Pain 06/19/20 00:15 07/19/20 00:14 06/20/20 14:26 Heparin Sodium (Porcine) (Heparin 5000 units/ml) 5,000 units EVERY 12 HOURS SUBQ 06/19/20 09:00 08/03/20 08:59 06/20/20 09:41 Lorazepam (Ativan) 2 mg Q6H PRN ORAL anxiety 06/20/20 16:45 06/27/20 16:44 Pantoprazole (Protonix) 40 mg DAILY IVP 06/20/20 22:00 07/20/20 21:59 06/20/20 22:04 Piperacillin Sod/ Tazobactam Sod 3.375 gm/Sodium Chloride 110 ml @ 27.5 mls/hr EVERY 8 HOURS IVPB 06/19/20 14:00 06/24/20 13:59 06/20/20 22:02 Risperidone (RisperDAL) 4 mg BEDTIME ORAL 06/20/20 21:00 08/04/20 20:59 06/20/20 20:30 Vancomycin HCl (Vanco pharmacy to dose) 1 ea DAILY PRN MISC Per rx protocol 06/19/20 00:15 07/19/20 00:14 Vancomycin HCl 750 mg/Sodium Chloride 275 ml @ 183.333 mls/hr Q12H IVPB 06/20/20 18:00 06/25/20 17:59 06/20/20 19:50 Assessment/Plan Problem List: (1) Cellulitis ICD Codes: L03.90 - Cellulitis, unspecified SNOMED: [id number] Qualifiers: Qualified Codes: L03.115 - Cellulitis of right lower limb (2) Schizophrenia ICD Codes: F20.9 - Schizophrenia, unspecified SNOMED: 43371248 Qualifiers: Qualified Codes: F20.9 - Schizophrenia, unspecified (3) UTI (urinary tract infection) ICD Codes: N39.0 - Urinary tract infection, site not specified SNOMED: [id number] Qualifiers: Qualified Codes: N39.0 - Urinary tract infection, site not specified Assessment/Plan: Encephalopathy UTI h/o schizophrenia headache neck spasm - ivfs - monitor mental staus - psych eval - Robel Carlisle MD Jun 20, 2020 23:09
--- NOTE | 2020-06-20 23:54 | Psych Consult Progress Note ---
Psychiatry Progress Note Psychiatry Progress Note Medications Current Medications Medications (Trade) Dose Ordered Sig/Disha Route PRN Reason Start Time Stop Time Status Last Admin Dose Admin Acetaminophen (Tylenol) 650 mg Q6H PRN ORAL For Pain 06/19/20 00:15 07/19/20 00:14 06/20/20 14:26 Baclofen (Lioresal) 10 mg ONCE ORAL 06/20/20 23:15 06/21/20 00:30 Heparin Sodium (Porcine) (Heparin 5000 units/ml) 5,000 units EVERY 12 HOURS SUBQ 06/19/20 09:00 08/03/20 08:59 06/20/20 09:41 Lorazepam (Ativan) 2 mg Q6H PRN ORAL anxiety 06/20/20 16:45 06/27/20 16:44 Pantoprazole (Protonix) 40 mg DAILY IVP 06/20/20 22:00 07/20/20 21:59 06/20/20 22:04 Piperacillin Sod/ Tazobactam Sod 3.375 gm/Sodium Chloride 110 ml @ 27.5 mls/hr EVERY 8 HOURS IVPB 06/19/20 14:00 06/24/20 13:59 06/20/20 22:02 Risperidone (RisperDAL) 4 mg BEDTIME ORAL 06/20/20 21:00 08/04/20 20:59 06/20/20 20:30 Vancomycin HCl ([facility] pharmacy to dose) 1 ea DAILY PRN MISC Per rx protocol 06/19/20 00:15 07/19/20 00:14 Vancomycin HCl 750 mg/Sodium Chloride 275 ml @ 183.333 mls/hr Q12H IVPB 06/20/20 18:00 06/25/20 17:59 06/20/20 19:50 Neurological/Psychiatric: Reports: anxiety, depressed, emotional problems Allergies: Coded Allergies: No Known Allergies (Unverified , 06/18/20) Objective Data Height (Feet): 5 Height (Inches): 9.00 Weight (Pounds): 158 General Appearance: alert, confused, moderate distress, agitated Additional Comments: alert, oriented x2, forgetful, cooperative. Mood is neutral to anxious. Affect is flat. Thought process, there is paucity of thought content. Thought content, no suicidal or homicidal ideation. Has auditory hallucinations. Cognition is impaired. Insight and judgment are limited. Assessment/Plan Assessment/Plan: ASSESSMENT: [place] I Schizophrenia. [place] II Deferred. [place] III As above. [place] IV Homelessness and living in a facility. [place] V 50. PLAN: 1. We will start the patient on risperidone 2 mg at bedtime. 2. Provide the patient with reality orientation and supportive therapy. Bravo Coto MD Jun 20, 2020 23:54
[2020-06-21] VITALS: BP 135/74
[2020-06-21 04:00] VITALS: BP 120/65
[2020-06-21] MEDS: Piperacillin/Tazobactam 3.375 GM in NS 110 ML IVPB SCH ×3 (05:02→23:00)
[2020-06-21] MEDS: Vancomycin 750mg/NS 275ml IVPB SCH ×4 (05:09→18:46)
[2020-06-21 07:03] LABS: ANION GAP 10 mmol/L (5-15); BLOOD UREA NITROGEN 14 mg/dL (7-18); CALCIUM 8.7 MG/DL (8.5-10.1); CARBON DIOXIDE 24 MMOL/L (21-32); CHLORIDE 105 MMOL/L (98-107); CREATININE 0.9 MG/DL (0.55-1.30); POTASSIUM 3.8 MMOL/L (3.5-5.1); SODIUM 139 MMOL/L (136-145)
[2020-06-21 07:26] LABS: BASOPHILS % (AUTO) 0.9 % (0.0-2.0); EOSINOPHILS % (AUTO) 1.9 % (0.0-3.0); HEMATOCRIT 27.4 % (37.0-47.0); HEMOGLOBIN 8.6 G/DL (12.0-16.0); LYMPHOCYTES % (AUTO) 31.9 % (20.0-45.0); MEAN CORPUSCULAR VOLUME 84 FL (80-99); MONOCYTES % (AUTO) 5.2 % (1.0-10.0); NEUTROPHILS % (AUTO) 60.1 % (45.0-75.0); PLATELET COUNT 272 K/UL (150-450); RED BLOOD COUNT 3.28 M/UL (4.20-5.40); WHITE BLOOD COUNT 9.1 K/UL (4.8-10.8)
[2020-06-21 08:00] VITALS: BP 162/89
[2020-06-21] MEDS: Pantoprazole Inj IVP SCH (09:51)
[2020-06-21] MEDS: Heparin 5000 units/ml inj SUBQ SCH ×2 (09:52→21:54)
[2020-06-21 12:00] VITALS: BP 155/76
--- NOTE | 2020-06-21 14:26 | General Progress Note ---
Assessment/Plan Assessment/Plan: #RLE cellulitis - r/o osteo #UTI #h/o schitzophrenia #homelessness #headaches - vanco and zosyn - podiatry eval - surgery eval - ID eval - check MRI - neuro eval for headaches - follow cx - psyc consult for history of schitophrenia Subjective ROS Limited/Unobtainable: No Constitutional: Reports: weakness HEENT: Denies: no symptoms, eye pain, blurred vision, tearing, double vision, ear pain, ear discharge, nose pain, nose congestion, throat pain, throat swelling, mouth pain, mouth swelling, other Cardiovascular: Denies: no symptoms, chest pain, edema, irregular heart rate, lightheadedness, palpitations, syncope, other Respiratory: Denies: no symptoms, cough, orthopnea, shortness of breath, SOB with excertion, SOB at rest, sputum, stridor, wheezing, other Gastrointestinal/Abdominal: Denies: no symptoms, abdomen distended, abdominal pain, black stools, tarry stools, blood in stool, constipated, diarrhea, difficulty swallowing, nausea, poor appetite, poor fluid intake, rectal bleeding , vomiting, other Genitourinary: Denies: no symptoms, burning, discharge, frequency, flank pain, hematuria, incontinence, pain, urgency, other Neurologic/Psychiatric: Reports: headache Hematologic/Lymphatic: Denies: no symptoms, anemia, easy bleeding, easy bruising, other Allergies: Coded Allergies: No Known Allergies (Unverified , 06/18/20) All Systems: reviewed and negative except above Subjective MRi showing osteo complains of headaches had some nausea earlier Objective Last 24 Hour Vital Signs Date Time Temp Pulse Resp B/P (MAP) Pulse Ox O2 Delivery O2 Flow Rate FiO2 06/21/20 12:00 96.4 83 20 155/76 (102) 99 06/21/20 09:00 Room Air 06/21/20 08:00 97.1 83 20 162/89 (113) 98 06/21/20 04:00 97.5 86 20 120/65 (83) 95 06/21/20 00:00 98.1 86 20 135/74 (94) 97 06/20/20 22:28 Room Air 06/20/20 20:00 98.4 86 20 124/63 (83) 97 06/20/20 17:30 99.0 82 18 133/68 (89) 96 Intake and Output 06/20/20 06/21/20 19:00 07:00 Intake Total 790 ml 240 ml Balance 790 ml 240 ml Intake Oral 790 ml Other 240 ml Laboratory Tests 06/21/20 06:03: White Blood Count 9.1, Red Blood Count 3.28L, Hemoglobin 8.6L, Hematocrit 27.4L , Mean Corpuscular Volume 84, Mean Corpuscular Hemoglobin 26.2L, Mean Corpuscular Hemoglobin Concent 31.4L, Red Cell Distribution Width 15.0H, Platelet Count 272, Mean Platelet Volume 8.3, Neutrophils (%) (Auto) 60.1, Lymphocytes (%) (Auto) 31.9, Monocytes (%) (Auto) 5.2, Eosinophils (%) (Auto) 1.9, Basophils (%) (Auto) 0.9, Sodium Level 139, Potassium Level 3.8, Chloride Level 105, Carbon Dioxide Level 24, Anion Gap 10, Blood Urea Nitrogen 14, Creatinine 0.9, Estimat Glomerular Filtration Rate > 60, Glucose Level 130H, Calcium Level 8.7 Height (Feet): 5 Height (Inches): 9.00 Weight (Pounds): 158 General Appearance: no apparent distress, alert EENT: PERRL/EOMI, normal ENT inspection Neck: non-tender, normal alignment Cardiovascular: normal peripheral pulses, normal rate Respiratory/Chest: chest wall non-tender, lungs clear Abdomen: normal bowel sounds, non tender Edema: non-pitting Neurologic: alert, oriented x 3 Prasanth Kaplan M.D. Jun 21, 2020 14:25
--- NOTE | 2020-06-21 14:35 | Diagnostic Imaging Report ---
EXAM: MRI MRI Right Foot WO Contrast HISTORY: Foot pain. Status post transmetatarsal amputation. Evaluate for osteomyelitis COMPARISON: No prior studies available for comparison. TECHNIQUE: MR examination of the foot includes sagittal T1 and STIR, coronal T1 and STIR as well as axial proton density fat-suppressed T2 and STIR sequences. FINDINGS: Patient is status post transmetatarsal amputation. There is extensive soft tissue edema noted along the distal soft tissue stump and also in the plantar aspect of the midfoot. There is no organized fluid collection or abscess identified. Abnormal marrow signal identified in the first and second residual metatarsal stumps suggestive for focal osteomyelitis. There may be a small central collection within the first metatarsal stump possibly an intraosseous abscess. The other visualized bony appendages are otherwise intact. Remaining joint spaces of the midfoot appear anatomic. Incidentally noted is marked thickening of the Achilles tendon likely sequela of old trauma or chronic tendinosis. IMPRESSION: STATUS POST TRANSMETATARSAL AMPUTATION. OSTEOMYELITIS OF THE FIRST AND SECOND METATARSAL STUMPS. POSSIBLE INTRAOSSEOUS ABSCESS IN THE FIRST METATARSAL STUMP. EXTENSIVE SOFT TISSUE SWELLING AND EDEMA ALONG THE DISTAL MARGIN OF THE SOFT TISSUE STUMP AND ALSO IN THE PLANTAR ASPECT OF THE MIDFOOT. NO ORGANIZED SOFT TISSUE FLUID COLLECTION OR ABSCESS. ABNORMAL THICKENING OF THE ACHILLES TENDON LIKELY SEQUELA OF OLD TRAUMA OR CHRONIC TENDINOSIS.
[2020-06-21 16:00] VITALS: BP 141/78
--- NOTE | 2020-06-21 16:33 | Surgery Progress Note ---
Surgery Progress Note Subjective Additional Comments MRI noted wbc improved discussed with ID and PCP podiatry eval Objective Last 24 Hour Vital Signs Date Time Temp Pulse Resp B/P (MAP) Pulse Ox O2 Delivery O2 Flow Rate FiO2 06/21/20 12:00 96.4 83 20 155/76 (102) 99 06/21/20 09:00 Room Air 06/21/20 08:00 97.1 83 20 162/89 (113) 98 06/21/20 04:00 97.5 86 20 120/65 (83) 95 06/21/20 00:00 98.1 86 20 135/74 (94) 97 06/20/20 22:28 Room Air 06/20/20 20:00 98.4 86 20 124/63 (83) 97 06/20/20 17:30 99.0 82 18 133/68 (89) 96 I&O Intake and Output 06/20/20 06/21/20 19:00 07:00 Intake Total 790 ml 240 ml Balance 790 ml 240 ml Intake Oral 790 ml Other 240 ml Dressing: dry Cardiovascular: RSR Respiratory: decreased breath sounds Abdomen: soft, present bowel sounds Extremities: edema, no cyanosis, other Laboratory Tests Test 06/21/20 06:03 White Blood Count 9.1 K/UL (4.8-10.8) Red Blood Count 3.28 M/UL (4.20-5.40) L Hemoglobin 8.6 G/DL (12.0-16.0) L Hematocrit 27.4 % (37.0-47.0) L Mean Corpuscular Volume 84 FL (80-99) Mean Corpuscular Hemoglobin 26.2 PG (27.0-31.0) L Mean Corpuscular Hemoglobin Concent 31.4 G/DL (32.0-36.0) L Red Cell Distribution Width 15.0 % (11.6-14.8) H Platelet Count 272 K/UL (150-450) Mean Platelet Volume 8.3 FL (6.5-10.1) Neutrophils (%) (Auto) 60.1 % (45.0-75.0) Lymphocytes (%) (Auto) 31.9 % (20.0-45.0) Monocytes (%) (Auto) 5.2 % (1.0-10.0) Eosinophils (%) (Auto) 1.9 % (0.0-3.0) Basophils (%) (Auto) 0.9 % (0.0-2.0) Sodium Level 139 MMOL/L (136-145) Potassium Level 3.8 MMOL/L (3.5-5.1) Chloride Level 105 MMOL/L (98-107) Carbon Dioxide Level 24 MMOL/L (21-32) Anion Gap 10 mmol/L (5-15) Blood Urea Nitrogen 14 mg/dL (7-18) Creatinine 0.9 MG/DL (0.55-1.30) Estimat Glomerular Filtration Rate > 60 mL/min (>60) Glucose Level 130 MG/DL (74-106) H Calcium Level 8.7 MG/DL (8.5-10.1) Plan Problems: (1) Cellulitis Assessment & Plan: 45F s/p midfoot amputation now with cellulitis labs as above no n/v/f/c MRI ordered and pending IV abx as per ID will follow with recs as resulted tests MRI noted Discussed with PCP and ID Podiatry eval cont abx vs further amputation thank you Patient is status post transmetatarsal amputation. There is extensive soft tissue edema noted along the distal soft tissue stump and also in the plantar aspect of the midfoot. There is no organized fluid collection or abscess identified. Abnormal marrow signal identified in the first and second residual metatarsal stumps suggestive for focal osteomyelitis. There may be a small central collection within the first metatarsal stump possibly an intraosseous abscess. The other visualized bony appendages are otherwise intact. Remaining joint spaces of the midfoot appear anatomic. Incidentally noted is marked thickening of the Achilles tendon likely sequela of old trauma or chronic tendinosis. IMPRESSION: STATUS POST TRANSMETATARSAL AMPUTATION. OSTEOMYELITIS OF THE FIRST AND SECOND METATARSAL STUMPS. POSSIBLE INTRAOSSEOUS ABSCESS IN THE FIRST METATARSAL STUMP. EXTENSIVE SOFT TISSUE SWELLING AND EDEMA ALONG THE DISTAL MARGIN OF THE SOFT TISSUE STUMP AND ALSO IN THE PLANTAR ASPECT OF THE MIDFOOT. NO ORGANIZED SOFT TISSUE FLUID COLLECTION OR ABSCESS. ABNORMAL THICKENING OF THE ACHILLES TENDON LIKELY SEQUELA OF OLD TRAUMA OR CHRONIC TENDINOSIS. Bones/joints: Midfoot amputation through the metatarsal bases. Achilles calcaneal enthesophyte. No acute fracture. No dislocation. Soft tissues: Extensive soft tissue edema and thickening over the distal stump, correlate with presentation to evaluate for cellulitis and ulceration. No radiopaque foreign body. Other findings: No clearly osteolytic finding identified. IMPRESSION: Midfoot amputation through the metatarsal bases. 3. Extensive soft tissue edema and thickening over the distal stump, correlate with presentation to evaluate for cellulitis and ulceration. 4. No clearly osteolytic finding identified. (2) Schizophrenia (3) UTI (urinary tract infection) Bar Johnson Jun 21, 2020 16:33
--- NOTE | 2020-06-21 17:21 | Infectious Diseases Prog Note ---
Assessment/Plan Assessment/Plan Full consult dictated: A) 1) mrsa right foot wound infection and cellulitis, MRI with osteomyelitis and ? abscess 2) e.coli uti 3) ? sepsis, leukocytosis 4) pmh noted 5) allergies - nkda P) 1) vancomycin and zosyn - day # 3 abx, likely need 6 weeks iv abx 2) podiatry evaluation 3) MRI right foot noted 4) per primary care and surgery 5) will f/u Subjective Allergies: Coded Allergies: No Known Allergies (Unverified , 06/18/20) Objective Last 24 Hour Vital Signs Date Time Temp Pulse Resp B/P (MAP) Pulse Ox O2 Delivery O2 Flow Rate FiO2 06/21/20 16:00 98.1 79 18 141/78 (99) 94 06/21/20 12:00 96.4 83 20 155/76 (102) 99 06/21/20 09:00 Room Air 06/21/20 08:00 97.1 83 20 162/89 (113) 98 06/21/20 04:00 97.5 86 20 120/65 (83) 95 06/21/20 00:00 98.1 86 20 135/74 (94) 97 06/20/20 22:28 Room Air 06/20/20 20:00 98.4 86 20 124/63 (83) 97 06/20/20 17:30 99.0 82 18 133/68 (89) 96 Height (Feet): 5 Height (Inches): 9.00 Weight (Pounds): 158 Microbiology Date/Time Source Procedure Growth Status 06/18/20 19:56 Blood Peripheral Blood Culture - Preliminary NO GROWTH AFTER 48 HOURS Resulted 06/18/20 19:40 Blood Peripheral Blood Culture - Preliminary NO GROWTH AFTER 48 HOURS Resulted 06/18/20 22:00 Nasal Nares MRSA Culture - Final Staphylococcus Aureus - Mrsa Complete 06/18/20 19:56 Urine,Clean Catch Urine Culture - Preliminary Escherichia Coli Gram Negative Bacillus 2 Resulted 06/18/20 22:00 Rectum VRE Culture - Final Enterococcus Faecium - Vre Complete 06/18/20 20:24 Foot Right Gram Stain - Final Complete 06/18/20 20:24 Wound Culture - Final Staphylococcus Aureus - Mrsa Staphylococcus Sp Coag Neg Complete Laboratory Tests Test 06/21/20 06:03 White Blood Count 9.1 K/UL (4.8-10.8) Red Blood Count 3.28 M/UL (4.20-5.40) L Hemoglobin 8.6 G/DL (12.0-16.0) L Hematocrit 27.4 % (37.0-47.0) L Mean Corpuscular Volume 84 FL (80-99) Mean Corpuscular Hemoglobin 26.2 PG (27.0-31.0) L Mean Corpuscular Hemoglobin Concent 31.4 G/DL (32.0-36.0) L Red Cell Distribution Width 15.0 % (11.6-14.8) H Platelet Count 272 K/UL (150-450) Mean Platelet Volume 8.3 FL (6.5-10.1) Neutrophils (%) (Auto) 60.1 % (45.0-75.0) Lymphocytes (%) (Auto) 31.9 % (20.0-45.0) Monocytes (%) (Auto) 5.2 % (1.0-10.0) Eosinophils (%) (Auto) 1.9 % (0.0-3.0) Basophils (%) (Auto) 0.9 % (0.0-2.0) Sodium Level 139 MMOL/L (136-145) Potassium Level 3.8 MMOL/L (3.5-5.1) Chloride Level 105 MMOL/L (98-107) Carbon Dioxide Level 24 MMOL/L (21-32) Anion Gap 10 mmol/L (5-15) Blood Urea Nitrogen 14 mg/dL (7-18) Creatinine 0.9 MG/DL (0.55-1.30) Estimat Glomerular Filtration Rate > 60 mL/min (>60) Glucose Level 130 MG/DL (74-106) H Calcium Level 8.7 MG/DL (8.5-10.1) Current Medications Medications (Trade) Dose Ordered Sig/Disha Route PRN Reason Start Time Stop Time Status Last Admin Dose Admin Acetaminophen (Tylenol) 650 mg Q6H PRN ORAL For Pain 06/19/20 00:15 07/19/20 00:14 06/21/20 09:52 Heparin Sodium (Porcine) (Heparin 5000 units/ml) 5,000 units EVERY 12 HOURS SUBQ 06/19/20 09:00 08/03/20 08:59 06/21/20 09:52 Lorazepam (Ativan) 2 mg Q6H PRN ORAL anxiety 06/20/20 16:45 06/27/20 16:44 Ondansetron HCl (Zofran) 4 mg Q6H PRN IVP Nausea & Vomiting 06/21/20 13:15 07/21/20 13:14 06/21/20 13:16 Pantoprazole (Protonix) 40 mg DAILY IVP 06/20/20 22:00 07/20/20 21:59 06/21/20 09:51 Piperacillin Sod/ Tazobactam Sod 3.375 gm/Sodium Chloride 110 ml @ 27.5 mls/hr EVERY 8 HOURS IVPB 06/19/20 14:00 06/24/20 13:59 06/21/20 14:19 Risperidone (RisperDAL) 4 mg BEDTIME ORAL 06/20/20 21:00 08/04/20 20:59 06/20/20 20:30 Vancomycin HCl (Vanco pharmacy to dose) 1 ea DAILY PRN MISC Per rx protocol 06/19/20 00:15 07/19/20 00:14 Vancomycin HCl 750 mg/Sodium Chloride 275 ml @ 183.333 mls/hr Q12H IVPB 06/20/20 18:00 06/25/20 17:59 06/21/20 05:09 Nataly Wagner MD Jun 21, 2020 17:21
--- NOTE | 2020-06-21 19:29 | Consultation ---
DATE OF CONSULTATION: 06/21/2020 INFECTIOUS DISEASE CONSULTATION CONSULTING PHYSICIAN: Nataly Wagner MD. ATTENDING PHYSICIAN: Prasanth Kaplan MD. REFERRING PHYSICIAN: Prasanth aKplan MD. REASON FOR CONSULTATION: Staph aureus/MRSA right foot infected wound with osteomyelitis and cellulitis and also E. coli UTI, complicated UTI, elevated white count, possible sepsis. CHIEF COMPLAINT: Patient's chief complaint coming into the hospital is right foot infection and urinary tract infection. HISTORY OF PRESENT ILLNESS: This is a 45-year-old female who has history of right foot partial amputation. It is unclear when it was done. Patient has a wound infection of the right foot and also MRI showing osteomyelitis. Patient has cellulitis also. Patient has complicated E. coli UTI with elevated white count, possible sepsis. Infectious Disease consult requested for antibiotic management. She is currently on Vanco and Zosyn. Again, unclear what the surgery was. Case discussed with Dr. Johnson from Surgery. We will get also Podiatry evaluation. Patient will likely need long-term IV antibiotics. We will continue Vanco and Zosyn for now for now. REVIEW OF SYSTEMS: CONSTITUTIONAL: Patient has no fever, chills, night sweats, or weight loss. HEAD AND NECK: No head pain or neck pain. No thrush, headache, or neck stiffness. CARDIAC: No chest pain. GASTROINTESTINAL: No nausea, vomiting, or diarrhea. No abdominal pain. No dysphagia. GENITOURINARY: She has some dysuria and frequency. No CVA tenderness. PULMONARY: No congestion or shortness of breath. No productive cough, hemoptysis, secretions. SKIN: No rash. EXTREMITIES: Maybe some right foot pain. No rash. No joint effusions or pain. NEUROLOGIC: No seizures. PAST MEDICAL HISTORY: Patient has a past medical history of right foot partial amputation. It is unclear when it was done. She was in looks like rehab facility. She has a history of other past medical history of schizophrenia. It is unclear if she is diabetic or has peripheral vascular disease at this time. She is not on insulin. ALLERGIES: No known drug allergies. No antibiotic allergies. SOCIAL HISTORY: Negative for smoking, alcohol, or drug abuse. FAMILY HISTORY: Noncontributory. Negative for tuberculosis or cancer. MEDICATIONS: Upon reviewing the MAR, she is on following medications. She is on Zosyn, Vanco, pantoprazole, Zofran, risperidone, lorazepam, heparin, acetaminophen. Outside medications noted and reconciled. Antibiotics, Vanco and Zosyn. PHYSICAL EXAMINATION: VITAL SIGNS: Temperature 96.4, pulse 83, respiratory rate 20, blood pressure 155/76, saturation 99% on room air. GENERAL: Alert, responsive. No distress. HEAD AND NECK: Oral exam, no thrush. Eye exam, no icterus. Normocephalic. Neck is supple. No JVD. HEART: Regular. No gallop or murmur. ABDOMEN: Soft. Positive bowel sounds. Nontender. LUNGS: Clear bilaterally. No rhonchi or rales. SKIN: No rash. MUSCULOSKELETAL: No effusion. Legs are without cellulitis. No septic arthritis in the joints at this time. PERIPHERAL VASCULAR: She has right foot partial amputation. The area looks infected. She has some cellulitis of the foot also with some redness surrounding the wound of the right foot. No mateo gangrene seen, but there is some redness noted at the base of the wound. NEUROLOGIC: Intact. LINE SITES: Without phlebitis. GENITOURINARY: No Jacques. No CVA tenderness. LABORATORY DATA: Patient's creatinine is 0.9. HCG of serum looks like was negative. White count 9.1, hemoglobin 11.6. White count on admission was 15.6. Urinalysis had 20 to 30 white blood cells and many bacteria. Cultures, VRE and MRSA screens are positive. Wound culture of the right foot had MRSA and urine culture had E. coli sensitivities were noted. Blood cultures negative to date. IMAGING STUDIES: MRI of the right foot showed osteomyelitis in the first and second metatarsal stumps, possible intraosseous abscess also and extensive soft tissue swelling and edema. Chest x-ray, no acute cardiopulmonary disease. Maybe bronchovascular crowding. ASSESSMENT AND PLAN: 1. Patient has MRSA/Staph aureus right foot infected wound with osteo, possible abscess, and cellulitis. Patient also has E. coli complicated UTI, elevated white count, possible sepsis. At this time, we will continue Vanco and Zosyn for gram-negative and MRSA coverage. Continue Vanco and Zosyn for infected right foot cellulitis, osteo, and abscess secondary to MRSA and also E. coli UTI. Patient was seen by Surgery, Dr. Johnson and we will also get a Podiatry evaluation for this patient. MRI was consistent with osteo and this patient will likely need 6 weeks of IV antibiotics and PICC line. Continue Vanco and Zosyn for now pending workup. 2. No history of diabetes, hypertension, or peripheral vascular disease mentioned. 3. Patient has been homeless in the past. 4. Partial amputation of right foot. 5. Schizophrenia. 6. No known allergies. 7. Social history is negative. 8. Family history is noncontributory. 9. Case was discussed with RN. 10. Continue treatment per primary consultants. Nataly Wagner M.D. DR: KIKA JOB#: [id number] CC:
[2020-06-21 20:00] VITALS: BP 110/61
--- NOTE | 2020-06-21 21:52 | Neurology Progress Note ---
Interim History Interim History ROS Limited/Unobtainable: No Interim History seen byp sych Objective Physical Exam Last Vital Signs Date Time Temp Pulse Resp B/P (MAP) Pulse Ox O2 Delivery O2 Flow Rate FiO2 06/21/20 20:00 98.1 72 16 110/61 (77) 98 06/21/20 09:00 Room Air Laboratory Tests Test 06/21/20 06:03 White Blood Count 9.1 K/UL (4.8-10.8) Red Blood Count 3.28 M/UL (4.20-5.40) L Hemoglobin 8.6 G/DL (12.0-16.0) L Hematocrit 27.4 % (37.0-47.0) L Mean Corpuscular Volume 84 FL (80-99) Mean Corpuscular Hemoglobin 26.2 PG (27.0-31.0) L Mean Corpuscular Hemoglobin Concent 31.4 G/DL (32.0-36.0) L Red Cell Distribution Width 15.0 % (11.6-14.8) H Platelet Count 272 K/UL (150-450) Mean Platelet Volume 8.3 FL (6.5-10.1) Neutrophils (%) (Auto) 60.1 % (45.0-75.0) Lymphocytes (%) (Auto) 31.9 % (20.0-45.0) Monocytes (%) (Auto) 5.2 % (1.0-10.0) Eosinophils (%) (Auto) 1.9 % (0.0-3.0) Basophils (%) (Auto) 0.9 % (0.0-2.0) Sodium Level 139 MMOL/L (136-145) Potassium Level 3.8 MMOL/L (3.5-5.1) Chloride Level 105 MMOL/L (98-107) Carbon Dioxide Level 24 MMOL/L (21-32) Anion Gap 10 mmol/L (5-15) Blood Urea Nitrogen 14 mg/dL (7-18) Creatinine 0.9 MG/DL (0.55-1.30) Estimat Glomerular Filtration Rate > 60 mL/min (>60) Glucose Level 130 MG/DL (74-106) H Calcium Level 8.7 MG/DL (8.5-10.1) Impression/Recommendations Problems: (1) Cellulitis (2) Schizophrenia (3) UTI (urinary tract infection) Diagnostic Impression Encephalopathy UTI h/o schitzophrenia headache neck spasm - baclofen 5m g qhs - ivfs - monitor mental staus - psych Robel Redding MD Jun 21, 2020 21:52
[2020-06-22] VITALS (7 sets, daily range): BP systolic 132–158; BP diastolic 70–90
--- NOTE | 2020-06-22 00:03 | Psych Consult Progress Note ---
Psychiatry Progress Note Psychiatry Progress Note Subjective the pt is doing better more engaged and calmer. dec agitation no si/hi Medications Current Medications Medications (Trade) Dose Ordered Sig/Disha Route PRN Reason Start Time Stop Time Status Last Admin Dose Admin Acetaminophen (Tylenol) 650 mg Q6H PRN ORAL For Pain 06/19/20 00:15 07/19/20 00:14 06/21/20 09:52 Heparin Sodium (Porcine) (Heparin 5000 units/ml) 5,000 units EVERY 12 HOURS SUBQ 06/19/20 09:00 08/03/20 08:59 06/21/20 21:54 Lorazepam (Ativan) 2 mg Q6H PRN ORAL anxiety 06/20/20 16:45 06/27/20 16:44 06/21/20 17:53 Ondansetron HCl (Zofran) 4 mg Q6H PRN IVP Nausea & Vomiting 06/21/20 13:15 07/21/20 13:14 06/21/20 13:16 Pantoprazole (Protonix) 40 mg DAILY IVP 06/20/20 22:00 07/20/20 21:59 06/21/20 09:51 Piperacillin Sod/ Tazobactam Sod 3.375 gm/Sodium Chloride 110 ml @ 27.5 mls/hr EVERY 8 HOURS IVPB 06/19/20 14:00 06/24/20 13:59 06/21/20 23:00 Risperidone (RisperDAL) 4 mg BEDTIME ORAL 06/20/20 21:00 08/04/20 20:59 06/21/20 21:53 Vancomycin HCl (Vanco pharmacy to dose) 1 ea DAILY PRN MISC Per rx protocol 06/19/20 00:15 07/19/20 00:14 Vancomycin HCl 750 mg/Sodium Chloride 275 ml @ 183.333 mls/hr Q12H IVPB 06/20/20 18:00 06/25/20 17:59 06/21/20 18:46 Neurological/Psychiatric: Reports: anxiety, depressed Allergies: Coded Allergies: No Known Allergies (Unverified , 06/18/20) Objective Data Height (Feet): 5 Height (Inches): 9.00 Weight (Pounds): 158 General Appearance: alert, confused, moderate distress, agitated Additional Comments: alert, oriented x2, forgetful, cooperative. Mood is neutral to anxious. Affect is flat. Thought process, there is paucity of thought content. Thought content, no suicidal or homicidal ideation. Has auditory hallucinations. Cognition is impaired. Insight and judgment are limited. Assessment/Plan [place] I: ASSESSMENT: [place] I Schizophrenia. [place] II Deferred. [place] III As above. [place] IV Homelessness and living in a facility. [place] V 50. PLAN: 1. We will start the patient on risperidone 2 mg at bedtime. 2. Provide the patient with reality orientation and supportive therapy. Status Narrative ASSESSMENT: [place] I Schizophrenia. [place] II Deferred. [place] III As above. [place] IV Homelessness and living in a facility. [place] V 50. PLAN: 1. We will start the patient on risperidone 2 mg at bedtime. 2. Provide the patient with reality orientation and supportive therapy. Assessment/Plan: ASSESSMENT: [place] I Schizophrenia. [place] II Deferred. [place] III As above. [place] IV Homelessness and living in a facility. [place] V 50. PLAN: 1. We will start the patient on risperidone 2 mg at bedtime. 2. Provide the patient with reality orientation and supportive therapy. Bravo Coto MD Jun 22, 2020 00:03
[2020-06-22] MEDS: Vancomycin 750mg/NS 275ml IVPB SCH ×2 (05:13)
[2020-06-22] MEDS: Piperacillin/Tazobactam 3.375 GM in NS 110 ML IVPB SCH ×4 (05:17→22:21)
[2020-06-22 06:33] LABS: EOSINOPHILS % (AUTO) 2.8 % (0.0-3.0); HEMATOCRIT 28.1 % (37.0-47.0); HEMOGLOBIN 8.8 G/DL (12.0-16.0); LYMPHOCYTES % (AUTO) 31.4 % (20.0-45.0); MEAN CORPUSCULAR VOLUME 84 FL (80-99); MONOCYTES % (AUTO) 6.2 % (1.0-10.0); NEUTROPHILS % (AUTO) 58.7 % (45.0-75.0); PLATELET COUNT 285 K/UL (150-450); RED BLOOD COUNT 3.36 M/UL (4.20-5.40)
[2020-06-22 06:47] LABS: ANION GAP 7 mmol/L (5-15); BLOOD UREA NITROGEN 11 mg/dL (7-18); CALCIUM 8.4 MG/DL (8.5-10.1); CARBON DIOXIDE 27 MMOL/L (21-32); CHLORIDE 104 MMOL/L (98-107); CREATININE 1.1 MG/DL (0.55-1.30); POTASSIUM 4.3 MMOL/L (3.5-5.1); SODIUM 138 MMOL/L (136-145)
[2020-06-22] MEDS: Heparin 5000 units/ml inj SUBQ SCH ×2 (08:08→20:10)
--- NOTE | 2020-06-22 09:13 | General Progress Note ---
Assessment/Plan Assessment/Plan: #RLE cellulitis - r/o osteo #UTI #h/o schitzophrenia #homelessness #headaches - vanco and zosyn - podiatry eval - surgery eval - ID eval - check MRI - neuro eval for headaches - follow cx - psyc consult for history of schitophrenia Subjective Allergies: Coded Allergies: No Known Allergies (Unverified , 06/18/20) Subjective MRi showing osteo complains of headaches had some nausea earlier Objective Last 24 Hour Vital Signs Date Time Temp Pulse Resp B/P (MAP) Pulse Ox O2 Delivery O2 Flow Rate FiO2 06/22/20 08:00 98.1 82 19 156/80 (105) 96 06/22/20 04:00 98.1 86 19 135/76 (95) 95 06/22/20 00:00 98.5 82 22 142/80 (100) 97 06/21/20 21:00 Room Air 06/21/20 20:00 98.1 72 16 110/61 (77) 98 06/21/20 16:00 98.1 79 18 141/78 (99) 94 06/21/20 12:00 96.4 83 20 155/76 (102) 99 Intake and Output 06/21/20 06/22/20 19:00 07:00 Intake Total 542.5 ml Balance 542.5 ml Intake Oral 240 ml IV Total 302.5 ml # Voids 2 Laboratory Tests 06/22/20 05:30: White Blood Count 7.0, Red Blood Count 3.36L, Hemoglobin 8.8L, Hematocrit 28.1L , Mean Corpuscular Volume 84, Mean Corpuscular Hemoglobin 26.2L, Mean Corpuscular Hemoglobin Concent 31.3L, Red Cell Distribution Width 14.0, Platelet Count 285, Mean Platelet Volume 7.4, Neutrophils (%) (Auto) 58.7, Lymphocytes (%) (Auto) 31.4, Monocytes (%) (Auto) 6.2, Eosinophils (%) (Auto) 2.8, Basophils (%) (Auto) 1.0, Sodium Level 138, Potassium Level 4.3, Chloride Level 104, Carbon Dioxide Level 27, Anion Gap 7, Blood Urea Nitrogen 11, Creatinine 1.1, Estimat Glomerular Filtration Rate 53.9, Glucose Level 147H, Calcium Level 8.4L Height (Feet): 5 Height (Inches): 9.00 Weight (Pounds): 158 Prasanth Kaplan M.D. Jun 22, 2020 09:13
[2020-06-22] MEDS ORDERED: Heparin1,000 units/500ml Premix(Conc:2 units/ml) IV PRN (10:00)
[2020-06-22] MEDS ORDERED: Lidocaine 1% Plain 30 ml INJ PRN (10:00)
[2020-06-22] MEDS: Pantoprazole Inj IVP SCH (10:42)
--- NOTE | 2020-06-22 11:41 | Surgery Progress Note ---
Surgery Progress Note Subjective Additional Comments no acute events labs noted comfortable no n/v/f/c dressings going well Objective Last 24 Hour Vital Signs Date Time Temp Pulse Resp B/P (MAP) Pulse Ox O2 Delivery O2 Flow Rate FiO2 06/22/20 10:32 Room Air 06/22/20 08:00 98.1 82 19 156/80 (105) 96 06/22/20 04:00 98.1 86 19 135/76 (95) 95 06/22/20 00:00 98.5 82 22 142/80 (100) 97 06/21/20 21:00 Room Air 06/21/20 20:00 98.1 72 16 110/61 (77) 98 06/21/20 16:00 98.1 79 18 141/78 (99) 94 06/21/20 12:00 96.4 83 20 155/76 (102) 99 I&O Intake and Output 06/21/20 06/22/20 19:00 07:00 Intake Total 542.5 ml Balance 542.5 ml Intake Oral 240 ml IV Total 302.5 ml # Voids 2 Dressing: dry Wound: clean Cardiovascular: RSR Respiratory: decreased breath sounds Abdomen: soft, non-tender, present bowel sounds Extremities: no tenderness, no cyanosis Laboratory Tests Test 06/22/20 05:30 White Blood Count 7.0 K/UL (4.8-10.8) Red Blood Count 3.36 M/UL (4.20-5.40) L Hemoglobin 8.8 G/DL (12.0-16.0) L Hematocrit 28.1 % (37.0-47.0) L Mean Corpuscular Volume 84 FL (80-99) Mean Corpuscular Hemoglobin 26.2 PG (27.0-31.0) L Mean Corpuscular Hemoglobin Concent 31.3 G/DL (32.0-36.0) L Red Cell Distribution Width 14.0 % (11.6-14.8) Platelet Count 285 K/UL (150-450) Mean Platelet Volume 7.4 FL (6.5-10.1) Neutrophils (%) (Auto) 58.7 % (45.0-75.0) Lymphocytes (%) (Auto) 31.4 % (20.0-45.0) Monocytes (%) (Auto) 6.2 % (1.0-10.0) Eosinophils (%) (Auto) 2.8 % (0.0-3.0) Basophils (%) (Auto) 1.0 % (0.0-2.0) Sodium Level 138 MMOL/L (136-145) Potassium Level 4.3 MMOL/L (3.5-5.1) Chloride Level 104 MMOL/L (98-107) Carbon Dioxide Level 27 MMOL/L (21-32) Anion Gap 7 mmol/L (5-15) Blood Urea Nitrogen 11 mg/dL (7-18) Creatinine 1.1 MG/DL (0.55-1.30) Estimat Glomerular Filtration Rate 53.9 mL/min (>60) Glucose Level 147 MG/DL (74-106) H Calcium Level 8.4 MG/DL (8.5-10.1) L Plan Problems: (1) Cellulitis Assessment & Plan: 45F s/p midfoot amputation now with cellulitis labs as above no n/v/f/c MRI ordered and pending IV abx as per ID will follow with recs as resulted tests MRI noted Discussed with PCP and ID Podiatry eval cont abx vs further amputation thank you Patient is status post transmetatarsal amputation. There is extensive soft tissue edema noted along the distal soft tissue stump and also in the plantar aspect of the midfoot. There is no organized fluid collection or abscess identified. Abnormal marrow signal identified in the first and second residual metatarsal stumps suggestive for focal osteomyelitis. There may be a small central collection within the first metatarsal stump possibly an intraosseous abscess. The other visualized bony appendages are otherwise intact. Remaining joint spaces of the midfoot appear anatomic. Incidentally noted is marked thickening of the Achilles tendon likely sequela of old trauma or chronic tendinosis. IMPRESSION: STATUS POST TRANSMETATARSAL AMPUTATION. OSTEOMYELITIS OF THE FIRST AND SECOND METATARSAL STUMPS. POSSIBLE INTRAOSSEOUS ABSCESS IN THE FIRST METATARSAL STUMP. EXTENSIVE SOFT TISSUE SWELLING AND EDEMA ALONG THE DISTAL MARGIN OF THE SOFT TISSUE STUMP AND ALSO IN THE PLANTAR ASPECT OF THE MIDFOOT. NO ORGANIZED SOFT TISSUE FLUID COLLECTION OR ABSCESS. ABNORMAL THICKENING OF THE ACHILLES TENDON LIKELY SEQUELA OF OLD TRAUMA OR CHRONIC TENDINOSIS. Bones/joints: Midfoot amputation through the metatarsal bases. Achilles calcaneal enthesophyte. No acute fracture. No dislocation. Soft tissues: Extensive soft tissue edema and thickening over the distal stump, correlate with presentation to evaluate for cellulitis and ulceration. No radiopaque foreign body. Other findings: No clearly osteolytic finding identified. IMPRESSION: Midfoot amputation through the metatarsal bases. 3. Extensive soft tissue edema and thickening over the distal stump, correlate with presentation to evaluate for cellulitis and ulceration. 4. No clearly osteolytic finding identified. (2) Schizophrenia (3) UTI (urinary tract infection) Bar Johnson Jun 22, 2020 11:41
--- NOTE | 2020-06-22 15:10 | Pre-Procedure Note/Attestation ---
Pre-Procedure Note/Attestation Complete Prior to Procedure Planned Procedure: not applicable Procedure Narrative: PICC Indications for Procedure Pre-Operative Diagnosis: needs computer terminal operator IV access Attestation I attest that I discussed the nature of the procedure; its benefits; risks and complications; and alternatives (and the risks and benefits of such alternatives ), prior to the procedure, with the patient (or the patient's legal sales representative womens health). I attest that, if there was a reasonable possibility of needing a blood transfusion, the patient (or the patient's legal sales representative womens health) was given the [facility] standardized written summary, pursuant to the Will Sigrid Blood Safety Act ([place] Health and Safety Code # 1645, as amended). I attest that I re-evaluated the patient just prior to the surgery and that there has been no change in the patient's H&P, except as documented below: Juventino Noel MD Jun 22, 2020 15:10
--- NOTE | 2020-06-22 15:12 | Brief Operative Note ---
Immediate Post Operative Note Operative Note Pre-op Diagnosis: needs oysterman IV access Procedure: PICC L arm Post-op Diagnosis: same as pre-op Surgeon: Vinny Clarke Anesthesia: local Specimen: none Complications: none Fluids: none Implant(s) used?: No Juventino Clarke MD Jun 22, 2020 15:12
--- NOTE | 2020-06-22 15:22 | Diagnostic Imaging Report ---
Indications: Needs long-term IV access Technique: Ultrasound confirms patent compressible left basilic vein. Total sterile technique, including sterile probe cover and sterile gel, hat, mask, sterile gown, large sterile drape, and preparation with 2% chlorhexidine utilized. Local anesthesia with 1% lidocaine. Under real-time ultrasound guidance, puncture basilic vein using 21-gauge needle, documented and archived, passage 0.018 guidewire under direct fluoroscopy, which was used to determine appropriate catheter length, exchange for 4 Kyrgyz peel-away sheath. 4 Kyr[place] Bard dual-lumen power PICC cut to 41 cm. It was inserted through the peel-away sheath. Peel-away sheath and guidewire removed. Catheter fixed to the skin. Both catheter ports aspirated and flushed. Patient tolerated procedure well, without immediate complication. Digital radiograph documents satisfactory catheter tip position, at the high right atrium. Total fluoroscopy time 13.3 seconds. Total dose area product [id number] [id number] Total number of images: 1 Impression: Successful placement of left arm PICC under sonographic and fluoroscopic guidance, as described above.
--- NOTE | 2020-06-22 16:37 | Consultation ---
History of Present Illness General Date patient seen: Jun 22, 2020 Time patient seen: 16:38 Chief Complaint: Right foot wound Referring physician: Dr Johnson Reason for Consultation: Rogjt foot wound Present Illness HPI Patient does not recall and who performed her procedure on right foot. She does not know how long ago. She feels she developed the wound because she stepped on a rock. She states she can not walk and uses a wheelchair Allergies: Coded Allergies: No Known Allergies (Unverified , 06/18/20) Medication History Scheduled Haloperidol (Haloperidol), 5 MG ORAL DAILY, (Reported) Patient History Healthcare decision maker Resuscitation status Advanced Directive on File Past Medical/Surgical History Past Medical/Surgical History: (1) Cellulitis (2) Schizophrenia (3) UTI (urinary tract infection) Review of Systems Constitutional: Reports: chills, fever Respiratory: Reports: cough ROS Narrative ROS difficult to obtain 2/2 mental status Physical Exam General Appearance: no apparent distress Cardiovascular/Chest: normal peripheral pulses Extremities: no calf tenderness, no edema, other Skin Exam: other - Full thickness wound noted plantar to stump site right foot. No malodor, no purulence. No bone or tendon is exposed. Neurologic: sensory deficit Musculoskeletal: other - TMA noted right foot Last 24 Hour Vital Signs Date Time Temp Pulse Resp B/P (MAP) Pulse Ox O2 Delivery O2 Flow Rate FiO2 06/22/20 16:00 98.2 88 19 158/90 (112) 97 06/22/20 12:09 98.1 81 20 148/86 (106) 95 06/22/20 10:32 Room Air 06/22/20 08:00 98.1 82 19 156/80 (105) 96 06/22/20 04:00 98.1 86 19 135/76 (95) 95 06/22/20 00:00 98.5 82 22 142/80 (100) 97 06/21/20 21:00 Room Air 06/21/20 20:00 98.1 72 16 110/61 (77) 98 Intake and Output 06/21/20 06/22/20 19:00 07:00 Intake Total 542.5 ml Balance 542.5 ml Intake Oral 240 ml IV Total 302.5 ml # Voids 2 Laboratory Tests Test 06/22/20 05:30 White Blood Count 7.0 K/UL (4.8-10.8) Red Blood Count 3.36 M/UL (4.20-5.40) L Hemoglobin 8.8 G/DL (12.0-16.0) L Hematocrit 28.1 % (37.0-47.0) L Mean Corpuscular Volume 84 FL (80-99) Mean Corpuscular Hemoglobin 26.2 PG (27.0-31.0) L Mean Corpuscular Hemoglobin Concent 31.3 G/DL (32.0-36.0) L Red Cell Distribution Width 14.0 % (11.6-14.8) Platelet Count 285 K/UL (150-450) Mean Platelet Volume 7.4 FL (6.5-10.1) Neutrophils (%) (Auto) 58.7 % (45.0-75.0) Lymphocytes (%) (Auto) 31.4 % (20.0-45.0) Monocytes (%) (Auto) 6.2 % (1.0-10.0) Eosinophils (%) (Auto) 2.8 % (0.0-3.0) Basophils (%) (Auto) 1.0 % (0.0-2.0) Sodium Level 138 MMOL/L (136-145) Potassium Level 4.3 MMOL/L (3.5-5.1) Chloride Level 104 MMOL/L (98-107) Carbon Dioxide Level 27 MMOL/L (21-32) Anion Gap 7 mmol/L (5-15) Blood Urea Nitrogen 11 mg/dL (7-18) Creatinine 1.1 MG/DL (0.55-1.30) Estimat Glomerular Filtration Rate 53.9 mL/min (>60) Glucose Level 147 MG/DL (74-106) H Calcium Level 8.4 MG/DL (8.5-10.1) L Height (Feet): 5 Height (Inches): 9.00 Weight (Pounds): 158 Medications Current Medications Medications (Trade) Dose Ordered Sig/Disha Route PRN Reason Start Time Stop Time Status Last Admin Dose Admin Acetaminophen (Tylenol) 650 mg Q6H PRN ORAL For Pain 06/19/20 00:15 07/19/20 00:14 06/21/20 09:52 Chlorhexidine Gluconate (Makeda-Hex 2%) 1 applic DAILY@1999 TOPIC 06/22/20 20:00 09/20/20 19:59 Heparin Sodium (Porcine) (Heparin 5000 units/ml) 5,000 units EVERY 12 HOURS SUBQ 06/19/20 09:00 08/03/20 08:59 06/21/20 21:54 Heparin Sodium/ Sodium Chloride (Heparin 1000 units/500ml Premix) 1,000 unit ONCE PRN IV PICC LINE 06/22/20 10:00 06/24/20 09:59 Lidocaine HCl (Xylocaine 1% 30ml) 30 ml ONCE PRN INJ PICC LINE 06/22/20 10:00 06/24/20 09:59 Lorazepam (Ativan) 2 mg Q6H PRN ORAL anxiety 06/20/20 16:45 06/27/20 16:44 06/21/20 17:53 Ondansetron HCl (Zofran) 4 mg Q6H PRN IVP Nausea & Vomiting 06/21/20 13:15 07/21/20 13:14 06/22/20 11:26 Pantoprazole (Protonix) 40 mg DAILY IVP 06/20/20 22:00 07/20/20 21:59 06/22/20 10:42 Piperacillin Sod/ Tazobactam Sod 3.375 gm/Sodium Chloride 110 ml @ 27.5 mls/hr EVERY 8 HOURS IVPB 06/19/20 14:00 06/24/20 13:59 06/22/20 13:52 Risperidone (RisperDAL) 4 mg BEDTIME ORAL 06/20/20 21:00 08/04/20 20:59 06/21/20 21:53 Vancomycin HCl ([facility] pharmacy to dose) 1 ea DAILY PRN MISC Per rx protocol 06/19/20 00:15 07/19/20 00:14 Vancomycin HCl 750 mg/Sodium Chloride 275 ml @ 183.333 mls/hr Q12H IVPB 06/20/20 18:00 06/25/20 17:59 06/22/20 05:13 Objective Narrative Procedure: XRAY Foot Complete R EXAM: XR Right Foot Complete, 3 or More Views CLINICAL HISTORY: Osteotomy TECHNIQUE: Frontal, lateral and oblique views of the right foot. COMPARISON: No relevant prior studies available. FINDINGS: Bones/joints: Midfoot amputation through the metatarsal bases. Achilles calcaneal enthesophyte. No acute fracture. No dislocation. Soft tissues: Extensive soft tissue edema and thickening over the distal stump, correlate with presentation to evaluate for cellulitis and ulceration. No radiopaque foreign body. Other findings: No clearly osteolytic finding identified. IMPRESSION: 1. Please note that radiographs are substantially less sensitive and specific for osteomyelitis then MRI. 2. Midfoot amputation through the metatarsal bases. 3. Extensive soft tissue edema and thickening over the distal stump, correlate with presentation to evaluate for cellulitis and ulceration. 4. No clearly osteolytic finding identified. Procedure: MRI Right Foot WO Contrast EXAM: MRI MRI Right Foot WO Contrast HISTORY: Foot pain. Status post transmetatarsal amputation. Evaluate for osteomyelitis COMPARISON: No prior studies available for comparison. TECHNIQUE: MR examination of the foot includes sagittal T1 and STIR, coronal T1 and STIR as well as axial proton density fat-suppressed T2 and STIR sequences. FINDINGS: Patient is status post transmetatarsal amputation. There is extensive soft tissue edema noted along the distal soft tissue stump and also in the plantar aspect of the midfoot. There is no organized fluid collection or abscess identified. Abnormal marrow signal identified in the first and second residual metatarsal stumps suggestive for focal osteomyelitis. There may be a small central collection within the first metatarsal stump possibly an intraosseous abscess. The other visualized bony appendages are otherwise intact. Remaining joint spaces of the midfoot appear anatomic. Incidentally noted is marked thickening of the Achilles tendon likely sequela of old trauma or chronic tendinosis. IMPRESSION: STATUS POST TRANSMETATARSAL AMPUTATION. OSTEOMYELITIS OF THE FIRST AND SECOND METATARSAL STUMPS. POSSIBLE INTRAOSSEOUS ABSCESS IN THE FIRST METATARSAL STUMP. EXTENSIVE SOFT TISSUE SWELLING AND EDEMA ALONG THE DISTAL MARGIN OF THE SOFT TISSUE STUMP AND ALSO IN THE PLANTAR ASPECT OF THE MIDFOOT. NO ORGANIZED SOFT TISSUE FLUID COLLECTION OR ABSCESS. ABNORMAL THICKENING OF THE ACHILLES TENDON LIKELY SEQUELA OF OLD TRAUMA OR CHRONIC TENDINOSIS. Assessment/Plan Diagnosis [place] I: A/ 1) Osteomyelitis right foot 2) Surgical wound vs DM wound P/ 1) Extensive chart review performed. Recommend extended IV abx for treatment of OM. Abx recs per ID 2) Wound care orders placed to be done daily with dakins solution 3) HgA1c ordered 4) Will follow in house. If patient transferred to [facility], I can follow there. Thank you Sid Ernst DPM Jun 22, 2020 16:37
[2020-06-22] MEDS: Dyna-Hex 2% Top Sol 2oz TOPIC SCH (20:08)
[2020-06-22] MEDS: Vancomycin 1.25gm/NS Premix IVPB SCH (20:09)
--- NOTE | 2020-06-22 23:41 | Psych Consult Progress Note ---
Psychiatry Progress Note Psychiatry Progress Note Subjective the pt is doing better more engaged and calmer. Medications Current Medications Medications (Trade) Dose Ordered Sig/Disha Route PRN Reason Start Time Stop Time Status Last Admin Dose Admin Acetaminophen (Tylenol) 650 mg Q6H PRN ORAL For Pain 06/19/20 00:15 07/19/20 00:14 06/21/20 09:52 Chlorhexidine Gluconate (Makeda-Hex 2%) 1 applic DAILY@2000 TOPIC 06/22/20 20:00 09/20/20 19:59 06/22/20 20:08 Heparin Sodium (Porcine) (Heparin 5000 units/ml) 5,000 units EVERY 12 HOURS SUBQ 06/19/20 09:00 08/03/20 08:59 06/22/20 20:10 Heparin Sodium/ Sodium Chloride (Heparin 1000 units/500ml Premix) 1,000 unit ONCE PRN IV PICC LINE 06/22/20 10:00 06/24/20 09:59 Lidocaine HCl (Xylocaine 1% 30ml) 30 ml ONCE PRN INJ PICC LINE 06/22/20 10:00 06/24/20 09:59 Lorazepam (Ativan) 2 mg Q6H PRN ORAL anxiety 06/20/20 16:45 06/27/20 16:44 06/21/20 17:53 Ondansetron HCl (Zofran) 4 mg Q6H PRN IVP Nausea & Vomiting 06/21/20 13:15 07/21/20 13:14 06/22/20 18:35 Pantoprazole (Protonix) 40 mg DAILY IVP 06/20/20 22:00 07/20/20 21:59 06/22/20 10:42 Piperacillin Sod/ Tazobactam Sod 3.375 gm/Sodium Chloride 110 ml @ 27.5 mls/hr EVERY 8 HOURS IVPB 06/19/20 14:00 06/24/20 13:59 06/22/20 22:21 Risperidone (RisperDAL) 4 mg BEDTIME ORAL 06/20/20 21:00 08/04/20 20:59 06/22/20 20:08 Sodium Hypochlorite (Dakin's Quarter Strength) 1 applic DAILY TOPIC 06/23/20 09:00 07/23/20 08:59 Vancomycin HCl ([facility] pharmacy to dose) 1 ea DAILY PRN MISC Per rx protocol 06/19/20 00:15 07/19/20 00:14 Vancomycin/Sodium Chloride 275 ml @ 183.333 mls/hr Q12H IVPB 06/22/20 20:00 06/27/20 19:59 06/22/20 20:09 Neurological/Psychiatric: Reports: headache Allergies: Coded Allergies: No Known Allergies (Unverified , 06/18/20) Objective Data Height (Feet): 5 Height (Inches): 9.00 Weight (Pounds): 158 General Appearance: no apparent distress Additional Comments: alert, oriented x2, forgetful, cooperative. Mood is neutral to anxious. Affect is flat. Thought process, there is paucity of thought content. Thought content, no suicidal or homicidal ideation. Has auditory hallucinations. Cognition is impaired. Insight and judgment are limited. Assessment/Plan [place] I: ASSESSMENT: [place] I Schizophrenia. [place] II Deferred. [place] III As above. [place] IV Homelessness and living in a facility. [place] V 50. PLAN: 1. We will start the patient on risperidone 2 mg at bedtime. 2. Provide the patient with reality orientation and supportive therapy. Status Narrative ASSESSMENT: [place] I Schizophrenia. [place] II Deferred. [place] III As above. [place] IV Homelessness and living in a facility. [place] V 50. PLAN: 1. We will start the patient on risperidone 2 mg at bedtime. 2. Provide the patient with reality orientation and supportive therapy. Assessment/Plan: ASSESSMENT: [place] I Schizophrenia. [place] II Deferred. [place] III As above. [place] IV Homelessness and living in a facility. [place] V 50. PLAN: 1. We will start the patient on risperidone 2 mg at bedtime. 2. Provide the patient with reality orientation and supportive therapy. Bravo Coto MD Jun 22, 2020 23:41
[2020-06-23 04:00] VITALS: BP 157/81
[2020-06-23] MEDS: Piperacillin/Tazobactam 3.375 GM in NS 110 ML IVPB SCH ×3 (05:30→22:02)
[2020-06-23 06:33] LABS: EOSINOPHILS % (AUTO) 2.2 % (0.0-3.0); HEMATOCRIT 26.6 % (37.0-47.0); HEMOGLOBIN 8.3 G/DL (12.0-16.0); LYMPHOCYTES % (AUTO) 25.2 % (20.0-45.0); MEAN CORPUSCULAR VOLUME 83 FL (80-99); MONOCYTES % (AUTO) 5.3 % (1.0-10.0); NEUTROPHILS % (AUTO) 66.2 % (45.0-75.0); PLATELET COUNT 276 K/UL (150-450); RED BLOOD COUNT 3.18 M/UL (4.20-5.40); RED CELL DISTRIBUTION WIDTH 13.6 % (11.6-14.8); WHITE BLOOD COUNT 7.6 K/UL (4.8-10.8)
[2020-06-23 08:00] VITALS: BP 132/71
[2020-06-23] MEDS: Pantoprazole Inj IVP SCH (08:36)
[2020-06-23] MEDS: Heparin 5000 units/ml inj SUBQ SCH ×2 (08:44→20:20)
[2020-06-23] MEDS: Dakin's 0.125% Soln (Quarter Strength) 16oz TOPIC SCH (08:47)
--- NOTE | 2020-06-23 09:42 | Surgery Progress Note ---
Surgery Progress Note Subjective Symptoms: improved, tolerating diet, voiding well, passing flatus Objective Last 24 Hour Vital Signs Date Time Temp Pulse Resp B/P (MAP) Pulse Ox O2 Delivery O2 Flow Rate FiO2 06/23/20 09:25 Room Air 06/23/20 08:00 97.6 65 18 132/71 (91) 94 06/23/20 04:00 97.5 84 18 157/81 (106) 97 06/22/20 23:56 98.2 68 19 132/70 (90) 96 06/22/20 21:00 Room Air 06/22/20 20:00 98.0 74 19 156/76 (102) 97 06/22/20 16:00 98.2 88 19 158/90 (112) 97 06/22/20 12:09 98.1 81 20 148/86 (106) 95 06/22/20 10:32 Room Air I&O Intake and Output 06/22/20 06/23/20 19:00 07:00 Intake Total 610.0 ml 330.000 ml Balance 610.0 ml 330.000 ml IV Total 110.0 ml 330.000 ml Other 500 ml Dressing: saturated Cardiovascular: RSR Respiratory: decreased breath sounds Abdomen: soft, non-tender, present bowel sounds Extremities: no edema, no tenderness, no cyanosis, pulses, other Laboratory Tests Test 06/22/20 17:20 06/23/20 05:15 Vancomycin Level Trough 11.3 ug/mL (5.0-12.0) White Blood Count 7.6 K/UL (4.8-10.8) Red Blood Count 3.18 M/UL (4.20-5.40) L Hemoglobin 8.3 G/DL (12.0-16.0) L Hematocrit 26.6 % (37.0-47.0) L Mean Corpuscular Volume 83 FL (80-99) Mean Corpuscular Hemoglobin 26.2 PG (27.0-31.0) L Mean Corpuscular Hemoglobin Concent 31.5 G/DL (32.0-36.0) L Red Cell Distribution Width 13.6 % (11.6-14.8) Platelet Count 276 K/UL (150-450) Mean Platelet Volume 7.2 FL (6.5-10.1) Neutrophils (%) (Auto) 66.2 % (45.0-75.0) Lymphocytes (%) (Auto) 25.2 % (20.0-45.0) Monocytes (%) (Auto) 5.3 % (1.0-10.0) Eosinophils (%) (Auto) 2.2 % (0.0-3.0) Basophils (%) (Auto) 1.0 % (0.0-2.0) Plan Problems: (1) Cellulitis Assessment & Plan: 45F s/p midfoot amputation now with cellulitis labs as above no n/v/f/c MRI ordered and pending IV abx as per ID will follow with recs as resulted tests MRI noted Discussed with PCP and ID Podiatry eval cont abx vs further amputation thank you Patient is status post transmetatarsal amputation. There is extensive soft tissue edema noted along the distal soft tissue stump and also in the plantar aspect of the midfoot. There is no organized fluid collection or abscess identified. Abnormal marrow signal identified in the first and second residual metatarsal stumps suggestive for focal osteomyelitis. There may be a small central collection within the first metatarsal stump possibly an intraosseous abscess. The other visualized bony appendages are otherwise intact. Remaining joint spaces of the midfoot appear anatomic. Incidentally noted is marked thickening of the Achilles tendon likely sequela of old trauma or chronic tendinosis. IMPRESSION: STATUS POST TRANSMETATARSAL AMPUTATION. OSTEOMYELITIS OF THE FIRST AND SECOND METATARSAL STUMPS. POSSIBLE INTRAOSSEOUS ABSCESS IN THE FIRST METATARSAL STUMP. EXTENSIVE SOFT TISSUE SWELLING AND EDEMA ALONG THE DISTAL MARGIN OF THE SOFT TISSUE STUMP AND ALSO IN THE PLANTAR ASPECT OF THE MIDFOOT. NO ORGANIZED SOFT TISSUE FLUID COLLECTION OR ABSCESS. ABNORMAL THICKENING OF THE ACHILLES TENDON LIKELY SEQUELA OF OLD TRAUMA OR CHRONIC TENDINOSIS. Bones/joints: Midfoot amputation through the metatarsal bases. Achilles calcaneal enthesophyte. No acute fracture. No dislocation. Soft tissues: Extensive soft tissue edema and thickening over the distal stump, correlate with presentation to evaluate for cellulitis and ulceration. No radiopaque foreign body. Other findings: No clearly osteolytic finding identified. IMPRESSION: Midfoot amputation through the metatarsal bases. 3. Extensive soft tissue edema and thickening over the distal stump, correlate with presentation to evaluate for cellulitis and ulceration. 4. No clearly osteolytic finding identified. (2) Schizophrenia (3) UTI (urinary tract infection) Benyamini,Bar Jun 23, 2020 09:42
[2020-06-23] MEDS: Vancomycin 1.25gm/NS Premix IVPB SCH ×2 (10:23→20:08)
[2020-06-23 12:00] VITALS: BP 169/89
--- NOTE | 2020-06-23 13:08 | Infectious Diseases Prog Note ---
Assessment/Plan Assessment/Plan ASSESSMENT AND PLAN: 1. mrsa right foot wound infection with osteomyelitis, cellulitis, e.coli/esbl proteus uti, sepsis, leukocytosis per diem physical therapist staph right foot wound culture likely colonizer - vancomycin - day # - plan on 6 weeks iv vancomycin for right foot osteomyelitis - zosyn - day # 5/ antibiotics for uti - picc line - monitor labs - podiatry and surgery notes reviewed 2. No history of diabetes, hypertension, or peripheral vascular disease mentioned. 3. Patient has been homeless in the past. 4. Partial amputation of right foot. 5. Schizophrenia. 6. No known allergies. 7. Social history is negative. 8. Family history is noncontributory. 9. Case was discussed with RN. 10. Continue treatment per primary consultants. 11. allergies - nkda Subjective Constitutional: Reports: fatigue; Denies: fever HEENT: Denies: congestion Respiratory: Denies: shortness of breath Cardiovascular: Denies: chest pain Gastrointestinal/Abdominal: Denies: nausea, vomiting, diarrhea Genitourinary: Reports: other Neurologic: Denies: headache Psychiatric: Denies: depression Skin: Denies: rash Hematologic: Denies: bleeding Musculoskeletal: Denies: pain Allergies: Coded Allergies: No Known Allergies (Unverified , 06/18/20) Objective Last 24 Hour Vital Signs Date Time Temp Pulse Resp B/P (MAP) Pulse Ox O2 Delivery O2 Flow Rate FiO2 06/23/20 09:25 Room Air 06/23/20 08:00 97.6 65 18 132/71 (91) 94 06/23/20 04:00 97.5 84 18 157/81 (106) 97 06/22/20 23:56 98.2 68 19 132/70 (90) 96 06/22/20 21:00 Room Air 06/22/20 20:00 98.0 74 19 156/76 (102) 97 06/22/20 16:00 98.2 88 19 158/90 (112) 97 Height (Feet): 5 Height (Inches): 9.00 Weight (Pounds): 158 General Appearance: no acute distress HEENT: normocephalic, atraumatic, anicteric, mucous membranes moist Respiratory/Chest: lungs clear, normal breath sounds, no respiratory distress, no accessory muscle use Cardiovascular: normal rate, regular rhythm, no gallop/murmur, no JVD Abdomen: normal bowel sounds, soft, non tender, no organomegaly, non distended Genitourinary: other - no carrington, no cva pain Extremities: no cyanosis, other - right foot wound stable, swelling less Skin: no rash 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 OSTEOMYELITIS OF THE FIRST AND SECOND METATARSAL STUMPS. POSSIBLE INTRAOSSEOUS ABSCESS IN THE FIRST METATARSAL STUMP. EXTENSIVE SOFT TISSUE SWELLING AND EDEMA ALONG THE DISTAL MARGIN OF THE SOFT TISSUE STUMP AND ALSO IN THE PLANTAR ASPECT OF THE MIDFOOT. NO ORGANIZED SOFT TISSUE FLUID COLLECTION OR ABSCESS. ABNORMAL THICKENING OF THE ACHILLES TENDON LIKELY SEQUELA OF OLD TRAUMA OR CHRONIC TENDINOSIS. Chest x-ray - FINDINGS: Lungs: Low lung volumes with bronchovascular crowding. No consolidation, pleural effusion, or pneumothorax. Pleural space: See above. Heart: Unremarkable. No cardiomegaly. Mediastinum: Unremarkable. Bones/joints: No acute abnormality IMPRESSION: 1. Low lung volumes with bronchovascular crowding. 2. Otherwise no acute cardiopulmonary disease. 3. If there is further concern, recommend additional imaging such as CT. Microbiology Date/Time Source Procedure Growth Status 06/18/20 19:56 Blood Peripheral Blood Culture - Preliminary NO GROWTH AFTER 4 DAYS Resulted 06/21/20 16:15 Nasopharynx SARS-CoV-2 RdRp Gene Assay - Final Complete 06/18/20 19:56 Urine,Clean Catch Urine Culture - Final Escherichia Coli Proteus Mirabilis Esbl Complete 06/18/20 22:00 Rectum - Final NO CARBAPENEM-RESISTANT ENTEROBACTERI... Complete Microbiology Date/Time Source Procedure Growth Status 06/21/20 16:15 Nasopharynx SARS-CoV-2 RdRp Gene Assay - Final Complete Labs Test 06/21/20 06:03 06/22/20 05:30 06/22/20 06:03 06/22/20 17:20 White Blood Count 9.1 K/UL (4.8-10.8) 7.0 K/UL (4.8-10.8) Red Blood Count 3.28 M/UL (4.20-5.40) 3.36 M/UL (4.20-5.40) Hemoglobin 8.6 G/DL (12.0-16.0) 8.8 G/DL (12.0-16.0) Hematocrit 27.4 % (37.0-47.0) 28.1 % (37.0-47.0) Mean Corpuscular Volume 84 FL (80-99) 84 FL (80-99) Mean Corpuscular Hemoglobin 26.2 PG (27.0-31.0) 26.2 PG (27.0-31.0) Mean Corpuscular Hemoglobin Concent 31.4 G/DL (32.0-36.0) 31.3 G/DL (32.0-36.0) Red Cell Distribution Width 15.0 % (11.6-14.8) 14.0 % (11.6-14.8) Platelet Count 272 K/UL (150-450) 285 K/UL (150-450) Mean Platelet Volume 8.3 FL (6.5-10.1) 7.4 FL (6.5-10.1) Neutrophils (%) (Auto) 60.1 % (45.0-75.0) 58.7 % (45.0-75.0) Lymphocytes (%) (Auto) 31.9 % (20.0-45.0) 31.4 % (20.0-45.0) Monocytes (%) (Auto) 5.2 % (1.0-10.0) 6.2 % (1.0-10.0) Eosinophils (%) (Auto) 1.9 % (0.0-3.0) 2.8 % (0.0-3.0) Basophils (%) (Auto) 0.9 % (0.0-2.0) 1.0 % (0.0-2.0) Sodium Level 139 MMOL/L (136-145) 138 MMOL/L (136-145) Potassium Level 3.8 MMOL/L (3.5-5.1) 4.3 MMOL/L (3.5-5.1) Chloride Level 105 MMOL/L (98-107) 104 MMOL/L (98-107) Carbon Dioxide Level 24 MMOL/L (21-32) 27 MMOL/L (21-32) Anion Gap 10 mmol/L (5-15) 7 mmol/L (5-15) Blood Urea Nitrogen 14 mg/dL (7-18) 11 mg/dL (7-18) Creatinine 0.9 MG/DL (0.55-1.30) 1.1 MG/DL (0.55-1.30) Estimat Glomerular Filtration Rate > 60 mL/min (>60) 53.9 mL/min (>60) Glucose Level 130 MG/DL (74-106) 147 MG/DL (74-106) Calcium Level 8.7 MG/DL (8.5-10.1) 8.4 MG/DL (8.5-10.1) Hemoglobin A1c 6.2 % (4.3-6.0) Vancomycin Level Trough 11.3 ug/mL (5.0-12.0) Test 06/23/20 05:15 White Blood Count 7.6 K/UL (4.8-10.8) Red Blood Count 3.18 M/UL (4.20-5.40) Hemoglobin 8.3 G/DL (12.0-16.0) Hematocrit 26.6 % (37.0-47.0) Mean Corpuscular Volume 83 FL (80-99) Mean Corpuscular Hemoglobin 26.2 PG (27.0-31.0) Mean Corpuscular Hemoglobin Concent 31.5 G/DL (32.0-36.0) Red Cell Distribution Width 13.6 % (11.6-14.8) Platelet Count 276 K/UL (150-450) Mean Platelet Volume 7.2 FL (6.5-10.1) Neutrophils (%) (Auto) 66.2 % (45.0-75.0) Lymphocytes (%) (Auto) 25.2 % (20.0-45.0) Monocytes (%) (Auto) 5.3 % (1.0-10.0) Eosinophils (%) (Auto) 2.2 % (0.0-3.0) Basophils (%) (Auto) 1.0 % (0.0-2.0) Laboratory Tests Test 06/22/20 17:20 06/23/20 05:15 Vancomycin Level Trough 11.3 ug/mL (5.0-12.0) White Blood Count 7.6 K/UL (4.8-10.8) Red Blood Count 3.18 M/UL (4.20-5.40) L Hemoglobin 8.3 G/DL (12.0-16.0) L Hematocrit 26.6 % (37.0-47.0) L Mean Corpuscular Volume 83 FL (80-99) Mean Corpuscular Hemoglobin 26.2 PG (27.0-31.0) L Mean Corpuscular Hemoglobin Concent 31.5 G/DL (32.0-36.0) L Red Cell Distribution Width 13.6 % (11.6-14.8) Platelet Count 276 K/UL (150-450) Mean Platelet Volume 7.2 FL (6.5-10.1) Neutrophils (%) (Auto) 66.2 % (45.0-75.0) Lymphocytes (%) (Auto) 25.2 % (20.0-45.0) Monocytes (%) (Auto) 5.3 % (1.0-10.0) Eosinophils (%) (Auto) 2.2 % (0.0-3.0) Basophils (%) (Auto) 1.0 % (0.0-2.0) Current Medications Medications (Trade) Dose Ordered Sig/Disha Route PRN Reason Start Time Stop Time Status Last Admin Dose Admin Acetaminophen (Tylenol) 650 mg Q6H PRN ORAL For Pain 06/19/20 00:15 07/19/20 00:14 06/21/20 09:52 Chlorhexidine Gluconate (Makeda-Hex 2%) 1 applic DAILY@2000 TOPIC 06/22/20 20:00 09/20/20 19:59 06/22/20 20:08 Heparin Sodium (Porcine) (Heparin 5000 units/ml) 5,000 units EVERY 12 HOURS SUBQ 06/19/20 09:00 08/03/20 08:59 06/23/20 08:44 Heparin Sodium/ Sodium Chloride (Heparin 1000 units/500ml Premix) 1,000 unit ONCE PRN IV PICC LINE 06/22/20 10:00 06/24/20 09:59 Lidocaine HCl (Xylocaine 1% 30ml) 30 ml ONCE PRN INJ PICC LINE 06/22/20 10:00 06/24/20 09:59 Lorazepam (Ativan) 2 mg Q6H PRN ORAL anxiety 06/20/20 16:45 06/27/20 16:44 06/21/20 17:53 Ondansetron HCl (Zofran) 4 mg Q6H PRN IVP Nausea & Vomiting 06/21/20 13:15 07/21/20 13:14 06/22/20 18:35 Pantoprazole (Protonix) 40 mg DAILY IVP 06/20/20 22:00 07/20/20 21:59 06/23/20 08:36 Piperacillin Sod/ Tazobactam Sod 3.375 gm/Sodium Chloride 110 ml @ 27.5 mls/hr EVERY 8 HOURS IVPB 06/19/20 14:00 06/24/20 13:59 06/23/20 05:30 Risperidone (RisperDAL) 4 mg BEDTIME ORAL 06/20/20 21:00 08/04/20 20:59 06/22/20 20:08 Sodium Hypochlorite (Dakin's Quarter Strength) 1 applic DAILY TOPIC 06/23/20 09:00 07/23/20 08:59 06/23/20 08:47 Vancomycin HCl (Vanco pharmacy to dose) 1 ea DAILY PRN MISC Per rx protocol 06/19/20 00:15 07/19/20 00:14 Vancomycin/Sodium Chloride 275 ml @ 183.333 mls/hr Q12H IVPB 06/22/20 20:00 06/27/20 19:59 06/23/20 10:23 Nataly Wagner MD Jun 23, 2020 13:08
[2020-06-23 16:00] VITALS: BP 146/85
[2020-06-23 20:00] VITALS: BP 120/70
[2020-06-23] MEDS: Dyna-Hex 2% Top Sol 2oz TOPIC SCH (20:08)
--- NOTE | 2020-06-23 20:39 | General Progress Note ---
Assessment/Plan Assessment/Plan: #RLE cellulitis - r/o osteo #UTI #h/o schitzophrenia #homelessness #headaches - Discharge to SNF in am - [facility] - podiatry eval - surgery eval - ID eval - check MRI - neuro eval for headaches - follow cx - psyc consult for history of schitophrenia Subjective ROS Limited/Unobtainable: No Constitutional: Reports: weakness HEENT: Denies: no symptoms, eye pain, blurred vision, tearing, double vision, ear pain, ear discharge, nose pain, nose congestion, throat pain, throat swelling, mouth pain, mouth swelling, other Cardiovascular: Denies: no symptoms, chest pain, edema, irregular heart rate, lightheadedness, palpitations, syncope, other Respiratory: Denies: no symptoms, cough, orthopnea, shortness of breath, SOB with excertion, SOB at rest, sputum, stridor, wheezing, other Gastrointestinal/Abdominal: Denies: no symptoms, abdomen distended, abdominal pain, black stools, tarry stools, blood in stool, constipated, diarrhea, difficulty swallowing, nausea, poor appetite, poor fluid intake, rectal bleeding , vomiting, other Genitourinary: Denies: no symptoms, burning, discharge, frequency, flank pain, hematuria, incontinence, pain, urgency, other Neurologic/Psychiatric: Denies: no symptoms, anxiety, depressed, emotional problems, headache, numbness, paresthesia, pre-existing deficit, seizure, tingling, tremors, weakness, other Endocrine: Denies: no symptoms, excessive sweating, flushing, intolerance to cold, intolerance to heat, increased hunger, increased thirst, increased urine, unexplained weight gain, unexplained weight loss, other Hematologic/Lymphatic: Denies: no symptoms, anemia, easy bleeding, easy bruising, other Allergies: Coded Allergies: No Known Allergies (Unverified , 06/18/20) Subjective Discharge to SNF in am MRi showing osteo complains of headaches had some nausea earlier Objective Last 24 Hour Vital Signs Date Time Temp Pulse Resp B/P (MAP) Pulse Ox O2 Delivery O2 Flow Rate FiO2 06/23/20 16:00 98.2 82 18 146/85 (105) 97 06/23/20 12:00 98.3 85 18 169/89 (115) 97 06/23/20 09:25 Room Air 06/23/20 08:00 97.6 65 18 132/71 (91) 94 06/23/20 04:00 97.5 84 18 157/81 (106) 97 06/22/20 23:56 98.2 68 19 132/70 (90) 96 06/22/20 21:00 Room Air Intake and Output 06/22/20 06/23/20 19:00 07:00 Intake Total 610.0 ml 330.000 ml Balance 610.0 ml 330.000 ml IV Total 110.0 ml 330.000 ml Other 500 ml Laboratory Tests 06/23/20 05:15: White Blood Count 7.6, Red Blood Count 3.18L, Hemoglobin 8.3L, Hematocrit 26.6L , Mean Corpuscular Volume 83, Mean Corpuscular Hemoglobin 26.2L, Mean Corpuscular Hemoglobin Concent 31.5L, Red Cell Distribution Width 13.6, Platelet Count 276, Mean Platelet Volume 7.2, Neutrophils (%) (Auto) 66.2, Lymphocytes (%) (Auto) 25.2, Monocytes (%) (Auto) 5.3, Eosinophils (%) (Auto) 2.2, Basophils (%) (Auto) 1.0 Height (Feet): 5 Height (Inches): 9.00 Weight (Pounds): 158 Prasanth Kaplan M.D. Jun 23, 2020 20:39
[2020-06-23 23:47] VITALS: BP 142/82
[2020-06-24 04:00] VITALS: BP 156/78
[2020-06-24] MEDS: Piperacillin/Tazobactam 3.375 GM in NS 110 ML IVPB SCH (06:22)
[2020-06-24 07:16] LABS: BASOPHILS % (AUTO) 0.9 % (0.0-2.0); HEMATOCRIT 26.1 % (37.0-47.0); HEMOGLOBIN 8.2 G/DL (12.0-16.0); MEAN CORPUSCULAR VOLUME 84 FL (80-99); MONOCYTES % (AUTO) 6.1 % (1.0-10.0); PLATELET COUNT 268 K/UL (150-450); RED BLOOD COUNT 3.12 M/UL (4.20-5.40); RED CELL DISTRIBUTION WIDTH 13.6 % (11.6-14.8)
[2020-06-24 07:34] LABS: ALANINE AMINOTRANSFERASE 22 U/L (12-78); ALBUMIN 2.3 G/DL (3.4-5.0); ALBUMIN/GLOBULIN RATIO 0.5 (1.0-2.7); ALKALINE PHOSPHATASE 83 U/L (46-116); ANION GAP 6 mmol/L (5-15); ASPARTATE AMINO TRANSFERASE 17 U/L (15-37); BILIRUBIN,TOTAL 0.3 MG/DL (0.2-1.0); BLOOD UREA NITROGEN 9 mg/dL (7-18); CALCIUM 8.4 MG/DL (8.5-10.1); CARBON DIOXIDE 26 MMOL/L (21-32); CHLORIDE 106 MMOL/L (98-107); CREATININE 1.2 MG/DL (0.55-1.30); POTASSIUM 3.8 MMOL/L (3.5-5.1); SODIUM 138 MMOL/L (136-145)
[2020-06-24 08:00] VITALS: BP 158/89
[2020-06-24] MEDS: Pantoprazole Inj IVP SCH (08:43)
[2020-06-24] MEDS: Vancomycin 1.25gm/NS Premix IVPB SCH (08:43)
[2020-06-24] MEDS: Heparin 5000 units/ml inj SUBQ SCH (08:44)
[2020-06-24] MEDS: Dakin's 0.125% Soln (Quarter Strength) 16oz TOPIC SCH (08:53)
--- NOTE | 2020-06-24 10:01 | Surgery Progress Note ---
Surgery Progress Note Subjective Symptoms: improved, tolerating diet, voiding well, passing flatus, BM Objective Last 24 Hour Vital Signs Date Time Temp Pulse Resp B/P (MAP) Pulse Ox O2 Delivery O2 Flow Rate FiO2 06/24/20 08:00 97.7 91 20 158/89 (112) 98 06/24/20 04:00 97.7 86 16 156/78 (104) 99 06/23/20 23:47 98.2 91 16 142/82 (102) 97 06/23/20 21:00 Room Air 06/23/20 20:00 98.8 87 15 120/70 (87) 98 06/23/20 16:00 98.2 82 18 146/85 (105) 97 06/23/20 12:00 98.3 85 18 169/89 (115) 97 I&O Intake and Output 06/23/20 06/24/20 19:00 07:00 Intake Total 400 ml 885.000 ml Balance 400 ml 885.000 ml Intake Oral 400 ml 500 ml IV Total 385.000 ml # Voids 2 2 Dressing: dry Wound: clean Cardiovascular: RSR Respiratory: clear Abdomen: soft, non-tender, present bowel sounds Extremities: no edema, no tenderness, no cyanosis, other Laboratory Tests Test 06/24/20 06:45 White Blood Count 8.0 K/UL (4.8-10.8) Red Blood Count 3.12 M/UL (4.20-5.40) L Hemoglobin 8.2 G/DL (12.0-16.0) L Hematocrit 26.1 % (37.0-47.0) L Mean Corpuscular Volume 84 FL (80-99) Mean Corpuscular Hemoglobin 26.2 PG (27.0-31.0) L Mean Corpuscular Hemoglobin Concent 31.3 G/DL (32.0-36.0) L Red Cell Distribution Width 13.6 % (11.6-14.8) Platelet Count 268 K/UL (150-450) Mean Platelet Volume 7.2 FL (6.5-10.1) Neutrophils (%) (Auto) 66.0 % (45.0-75.0) Lymphocytes (%) (Auto) 25.0 % (20.0-45.0) Monocytes (%) (Auto) 6.1 % (1.0-10.0) Eosinophils (%) (Auto) 2.0 % (0.0-3.0) Basophils (%) (Auto) 0.9 % (0.0-2.0) Erythrocyte Sedimentation Rate 125 MM/HR (0-20) H Sodium Level 138 MMOL/L (136-145) Potassium Level 3.8 MMOL/L (3.5-5.1) Chloride Level 106 MMOL/L (98-107) Carbon Dioxide Level 26 MMOL/L (21-32) Anion Gap 6 mmol/L (5-15) Blood Urea Nitrogen 9 mg/dL (7-18) Creatinine 1.2 MG/DL (0.55-1.30) Estimat Glomerular Filtration Rate 48.8 mL/min (>60) Glucose Level 147 MG/DL (74-106) H Calcium Level 8.4 MG/DL (8.5-10.1) L Total Bilirubin 0.3 MG/DL (0.2-1.0) Aspartate Amino Transf (AST/SGOT) 17 U/L (15-37) Alanine Aminotransferase (ALT/SGPT) 22 U/L (12-78) Alkaline Phosphatase 83 U/L (46-116) Total Protein 6.7 G/DL (6.4-8.2) Albumin 2.3 G/DL (3.4-5.0) L Globulin 4.4 g/dL Albumin/Globulin Ratio 0.5 (1.0-2.7) L Vancomycin Level Trough 25.5 ug/mL (5.0-12.0) H Plan Problems: (1) Cellulitis Assessment & Plan: 45F s/p midfoot amputation now with cellulitis labs as above no n/v/f/c MRI ordered and pending IV abx as per ID will follow with recs as resulted tests MRI noted Discussed with PCP and ID Podiatry eval cont abx vs further amputation podiatry input appreciated picc in place d/c planning on abx 6 weeks iv abx local wound care thank you Patient is status post transmetatarsal amputation. There is extensive soft tissue edema noted along the distal soft tissue stump and also in the plantar aspect of the midfoot. There is no organized fluid collection or abscess identified. Abnormal marrow signal identified in the first and second residual metatarsal stumps suggestive for focal osteomyelitis. There may be a small central collection within the first metatarsal stump possibly an intraosseous abscess. The other visualized bony appendages are otherwise intact. Remaining joint spaces of the midfoot appear anatomic. Incidentally noted is marked thickening of the Achilles tendon likely sequela of old trauma or chronic tendinosis. IMPRESSION: STATUS POST TRANSMETATARSAL AMPUTATION. OSTEOMYELITIS OF THE FIRST AND SECOND METATARSAL STUMPS. POSSIBLE INTRAOSSEOUS ABSCESS IN THE FIRST METATARSAL STUMP. EXTENSIVE SOFT TISSUE SWELLING AND EDEMA ALONG THE DISTAL MARGIN OF THE SOFT TISSUE STUMP AND ALSO IN THE PLANTAR ASPECT OF THE MIDFOOT. NO ORGANIZED SOFT TISSUE FLUID COLLECTION OR ABSCESS. ABNORMAL THICKENING OF THE ACHILLES TENDON LIKELY SEQUELA OF OLD TRAUMA OR CHRONIC TENDINOSIS. Bones/joints: Midfoot amputation through the metatarsal bases. Achilles calcaneal enthesophyte. No acute fracture. No dislocation. Soft tissues: Extensive soft tissue edema and thickening over the distal stump, correlate with presentation to evaluate for cellulitis and ulceration. No radiopaque foreign body. Other findings: No clearly osteolytic finding identified. IMPRESSION: Midfoot amputation through the metatarsal bases. 3. Extensive soft tissue edema and thickening over the distal stump, correlate with presentation to evaluate for cellulitis and ulceration. 4. No clearly osteolytic finding identified. (2) Schizophrenia (3) UTI (urinary tract infection) Bar Johnson Jun 24, 2020 10:01
[2020-06-24] MEDS ORDERED: ZOSYN 3.373.375 GM/1 IVPB ×2 (10:34→10:37)
[2020-06-24] MEDS ORDERED: VANCOMYCIN1.25 GM/12 IV (10:36)
[2020-06-24 12:00] VITALS: BP 142/86
[2020-06-24] MEDS ORDERED: ACETAMINOPHEN325 M1 ORAL (12:45)
[2020-06-24] MEDS ORDERED: ATIVAN4 MG/1 ML IJ (12:46)
[2020-06-24] MEDS ORDERED: RISPERIDONE2 MG/2 ML PO (12:48)
[2020-06-24] MEDS ORDERED: DAKIN'S473 ML MC (12:49)
--- NOTE | 2020-06-25 00:57 | Psych Consult Progress Note ---
Psychiatry Progress Note Psychiatry Progress Note Subjective the pt is doing better more engaged and calmer. Neurological/Psychiatric: Reports: anxiety, depressed, emotional problems; Denies: no symptoms, headache, numbness, paresthesia, pre-existing deficit, seizure, tingling, tremors, weakness, other Allergies: Coded Allergies: No Known Allergies (Unverified , 06/18/20) Objective Data Height (Feet): 5 Height (Inches): 9.00 Weight (Pounds): 158 General Appearance: no apparent distress Additional Comments: alert, oriented x2, forgetful, cooperative. Mood is neutral to anxious. Affect is flat. Thought process, there is paucity of thought content. Thought content, no suicidal or homicidal ideation. Has auditory hallucinations. Cognition is impaired. Insight and judgment are limited. Assessment/Plan [place] I: ASSESSMENT: [place] I Schizophrenia. [place] II Deferred. [place] III As above. [place] IV Homelessness and living in a facility. [place] V 50. PLAN: 1. We will start the patient on risperidone 2 mg at bedtime. 2. Provide the patient with reality orientation and supportive therapy. Status Narrative ASSESSMENT: [place] I Schizophrenia. [place] II Deferred. [place] III As above. [place] IV Homelessness and living in a facility. [place] V 50. PLAN: 1. We will start the patient on risperidone 2 mg at bedtime. 2. Provide the patient with reality orientation and supportive therapy. Assessment/Plan: ASSESSMENT: [place] I Schizophrenia. [place] II Deferred. [place] III As above. [place] IV Homelessness and living in a facility. [place] V 50. PLAN: 1. We will start the patient on risperidone 2 mg at bedtime. 2. Provide the patient with reality orientation and supportive therapy. Bravo Coto MD Jun 25, 2020 00:57
--- NOTE | 2020-06-25 08:48 | Discharge Summary ---
Glo Esparza COPIER OPERATOR 06/25/20 0848: Discharge Summary Discharge Summary _ DATE OF ADMISSION: 06/18/2020 DATE OF DISCHARGE: 06/24/2020 DISCHARGED BY: Dr. Kaplan REASON FOR ADMISSION: 45 years old female, homeless, with past medical history of schizophrenia, status post recent right foot infection, status post transmetatarsal amputation , partially treated with antibiotics, presented for evaluation due to pain in her foot. Pain reported as pressure-like and throbbing. She enied radiation of pain up to her leg. She denied history of diabetes. No fever or chills. She denied chest pain, shortness of breath, abdominal pain. She was recently hospitalized in [facility]. Patient apparently was supposed to take antibiotic. The patient was not taking any medications at this time. Upon evaluation vital signs were stable. Laboratory work-up revealed leukocytosis WBC 15.6, hemoglobin 9.9, hematocrit 30.8. Urinalysis revealed pyuria, many bacteria ,+3 leukocyte esterase. Stable electrolytes. UN 26, creatinine 2.0. X-ray of the right foot revealed midfoot amputation through the metatarsal bases. Extensive soft tissue edema and thickening over the distal stump ; no clear evidence of osteolytic findings. Chest x-ray revealed no acute cardiopulmonary pathology Patient subsequently admitted with right lower extremity cellulitis, rule out osteomyelitis, urinary tract infection, schizophrenia and homelessness CONSULTANTS: neurologist Dr. Beyer ID specialist Dr. Bernard Cortez toolsmith Dr. Ernst psychiatrist [facility] COURSE: Patient admitted to medical surgical floor. Patient started on empiric antibiotic. ID specialist followed. Rapid COVID-19 was negative. Blood cultures were negative. Urine culture revealed E. coli and Proteus ESBL. Wound culture revealed MRSA and staph coag negative. Antibiotic regimen was optimized as per ID specialist recommendation. MRI of the right foot revealed status post transmetatarsal amputation. Osteomyelitis of the first and second metatarsal stumps, possible intraosseous abscess in the first metatarsal stump , extensive soft tissue swelling and edema. No organized soft tiss ue fluid collection or abscess. ESR 125, CRP 4.5. Wound care provided as per toolsmith recommendation . PICC line was placed prior to discharge. Patient will need total of 6 weeks of antibiotic for right foot osteomyelitis. Patient was discharged on IV vancomycin to complete 6 weeks course as well as IV Zosyn to complete treatment for UTI. CT of the head revealed no evidence of intracranial pathology. Patient reported neck spasms and headache. Patient started on baclofen. Renal parameters and electrolytes were closely monitored ,electrolytes corrected as needed, nephrotoxic's were avoided. Prior to discharge creatinine from 2.0 down to 1.2 Hemoglobin A1c 6.2. Hemoglobin and hematocrit were closely monitored with goal to keep hemoglobin 7. Prior to discharge hemoglobin 8.2 , hematocrit 26.1. DVT and GI prophylaxis provided. Supportive care provided. Psychiatric medication regimen was initiated as per psychiatrist. Reality orientation and supportive therapy provided. Placement was found and secured at the nursing home facility. Patient was stable for transfer to complete IV antibiotic as prescribed. Rn Lpn Cna will be following at the facility for further management. FINAL DIAGNOSES: MRSA right foot wound infection with osteomyelitis and cellulitis E. coli/ESBL Proteus UTI Sepsis Partial /transmetatarsal amputation of right foot Headaches Neck spasm Homeless DISCHARGE MEDICATIONS: See Medication Reconciliation list. DISCHARGE INSTRUCTIONS: Patient was discharged to the nursing home facility. Follow up with medical doctor at the facility. I have been assigned to dictate discharge summary for this account. I was not involved in the patient's management. Prasanth Kaplan M.D. 06/26/202027: Glo Esparza NP Jun 25, 2020 08:48 Prasanth Kaplan M.D. Jun 26, 2020 20:28
--- NOTE | 2020-06-29 00:29 | Coder Physician Query ---
Clarification is required for compliance, coding accuracy, and to reflect severity of illness for this patient Dear Dr. Prasanth Degroot Date: 06/29/20 Truck Driver Salesperson/CDS Name: LORAINE Paulson SEPSIS PRESENT ON ADMISSION QUERY - Exercise your independent professional judgment when responding to query. Question asked do not imply a particular answer is desired/expected Clinical Documentation States: REASON FOR ADMISSION: 45 years old female, homeless, with past medical history of schizophrenia, status post recent right foot infection Laboratory work-up revealed leukocytosis WBC 15.6 on 06/18/20 date of admission. Blood cultures were negative. Urine culture revealed E. coli and Proteus ESBL. Wound culture revealed MRSA and staph coag negative. Antibiotic regimen was optimized as per ID specialist recommendation. FINAL DIAGNOSES: MRSA right foot wound infection with osteomyelitis and cellulitis E. coli/ESBL Proteus UTI Sepsis Partial /transmetatarsal amputation of right foot Sepsis not mentioned in the EMERGENCY ROOM NOTE, HISTORY & PHYSICAL. Was SEPSIS present on admission? [x] Yes [] No [] Clinically undeterminable prasanth degroot 2019 Physician signature Date Please also document in your Progress Notes and/or Discharge Summary and indicate if the condition was present on admission. GINETTE
== END 2020-06-24 13:41 | DRG 872 ==
LOC: EDBD 19:41 → EMR 20:36 → 4E 22:54 → EDBEDREQ 23:27
PROC: 02HV33Z Insertion of Infusion Device into Superior Vena Cava, Percutaneous Approach (ICD-10-PCS; principal; 2020-06-22)
DX: A41.9 Sepsis, unspecified organism (principal); T87.43 Infection of amputation stump, right lower extremity; L03.115 Cellulitis of right lower limb; N39.0 Urinary tract infection, site not specified; M86.8X7 Other osteomyelitis, ankle and foot; Z16.12 Extended spectrum beta lactamase (ESBL) resistance; B96.20 Unspecified Escherichia coli [E. coli] as the cause of diseases classified elsewhere; B95.62 Methicillin resistant Staphylococcus aureus infection as the cause of diseases classified elsewhere; F20.9 Schizophrenia, unspecified; Z59.0 Homelessness; R51 Headache; M62.838 Other muscle spasm
CPT/HCPCS: 36415; 36569; 70450; 71045; 76937; 80048; 80053; 80202; 80307; 81003; 82550; 82962; 83036; 83605; 83690; 83735; 84484; 84703; 85025; 85610; 85651; 85730; 86140; 87040; 87070; 87081; 87086; 87181; 87205; 93005; 96361; 96365; 96368; 96375; 99285; G0480; J2405; J2765; J7030; U0002